=== PATIENT | female | born 1960 | race Caucasian/White ===

== ENCOUNTER 2016-10-28 22:39 | Inpatient (IN) | payer BC, OTHER ==
[2016-10-28] MEDS ORDERED: KETOROLAC 30 MG/ML 1 ML VIAL IVP STA (22:45)
[2016-10-28] MEDS ORDERED: FAMOTIDINE 20 MG/2 ML VIAL IV STA (22:45)
[2016-10-28] MEDS ORDERED: ONDANSETRON 4 MG/2 ML VIAL IVP STA (22:45)
--- NOTE | 2016-10-28 22:49 | ED ---
Chest Pain HPI - General Stated Complaint: chest pain,NV Time Seen by Provider: 10/28/16 22:39 Source: patient, EMS, RN notes reviewed Mode of arrival: EMS - History of Present Illness Initial Comments: This is a 56-year-old female with a history of a cholecystectomy in the past who had the onset about 2 hours ago of nausea vomiting diarrhea and sharp midsternal chest pain. He states the pain was 1010 severity did not get any relief from nitroglycerin that was administered by EMS she was given 324 mg aspirin she still feels nauseated points to her lower sternum and epigastric area. She denies any drinking today no history of peptic ulcer disease. No history of heart disease or lung disease. MD Complaint: chest pain, other - Related Data Home Medications Medication Instructions Recorded Confirmed Calcium Carbonate [Calcium] 600 mg PO DAILY 03/06/16 03/06/16 Celecoxib [CeleBREX] 200 mg PO DAILY 03/06/16 03/08/16 Cetirizine HCl [Zyrtec] 10 mg PO DAILY 03/06/16 03/08/16 Cyanocobalamin [Vitamin B-12] 500 mcg PO DAILY 03/06/16 03/08/16 Verapamil HCl [Verapamil ER] 120 mg PO Q2D 03/06/16 03/08/16 Previous Rx's Medication Instructions Recorded traMADol HCl [Ultram] 50 mg PO Q6H PRN #40 tab 03/08/16 Allergies Allergy/AdvReac Type Severity Reaction Status Date / Time tioconazole Allergy Rash/Hives Verified 03/06/16 11:53 [From Monistat 1 (tioconazole)] codeine AdvReac Nausea & Verified 03/06/16 11:53 Vomiting Review of Systems ROS Statement: Those systems with pertinent positive or pertinent negative responses have been documented in the HPI. ROS Other: All systems not noted in ROS Statement are negative. EKG Findings - EKG Results: EKG: interpreted by [facility] [place] (EKG showed a sinus rhythm of 97 NH interval 132 QRS duration 80 daily since QTC of 350/444 50 T-wave changes. Compared to the EKG submitted by EMS.), sinus rhythm, normal axis, normal QRS, normal ST/T, no acute changes Past Medical History Past Medical History: Asthma, GERD/Reflux, Hypertension, Osteoarthritis (OA) Additional Past Medical History / Comment(s): takes verapamil for tachycardia, to have sleep study soon History of Any Multi-Drug Resistant Organisms: None Reported Past Surgical History: Appendectomy, Cholecystectomy, Hysterectomy, Joint Replacement, Orthopedic Surgery, Tonsillectomy Additional Past Surgical History / Comment(s): both knees replaced, thumb surg, left adrenal gland removed Past Anesthesia/Blood Transfusion Reactions: Postoperative Nausea & Vomiting ( PONV) Additional Past Anesthesia/Blood Transfusion Reaction / Comment(s): sister had stroke after surg. Past Psychological History: No Psychological Hx Reported Smoking Status: Never smoker Past Alcohol Use History: Occasional Past Drug Use History: None Reported - Past Family History Father Family Medical History: Deep Vein Thrombosis (DVT) Sister(s) Family Medical History: Cancer General Exam - General Exam Comments Initial Comments: This is a well up well-nourished awake alert anxious appearing female General appearance: alert, anxious, in distress Head exam: Present: atraumatic, normocephalic, normal inspection Eye exam: Present: normal appearance, PERRL, EOMI. Absent: scleral icterus, conjunctival injection, periorbital swelling ENT exam: Present: normal exam, mucous membranes moist Neck exam: Present: normal inspection. Absent: tenderness, meningismus, lymphadenopathy Respiratory exam: Present: normal lung sounds bilaterally, chest wall tenderness (Reproducible tenderness palpation over the lower costal sternal margins). Absent: respiratory distress, wheezes, rales, rhonchi, stridor Cardiovascular Exam: Present: regular rate, normal rhythm, normal heart sounds. Absent: systolic murmur, diastolic murmur, rubs, gallop, clicks GI/Abdominal exam: Present: soft, tenderness (Midepigastric tenderness palpation no guarding rebound), normal bowel sounds. Absent: distended, guarding, rebound, rigid Extremities exam: Present: normal inspection, full ROM, normal capillary refill. Absent: tenderness, pedal edema, joint swelling, calf tenderness Back exam: Present: normal inspection Neurological exam: Present: alert, oriented X3, CN II-XII intact Psychiatric exam: Present: normal affect, normal mood Skin exam: Present: warm, dry, intact, normal color. Absent: rash Course Vital Signs 10/28/16 10/29/16 10/29/16 22:49 00:41 01:32 Temperature 97 F L Pulse Rate 79 73 77 Respiratory 16 14 14 Rate Blood Pressure 116/67 101/67 107/73 O2 Sat by Pulse 94 L 99 99 Oximetry - Reevaluation(s) Reevaluation #1: 10/29/16 00:29 The patient still demonstrates epigastric pain to palpation and states she has not got much relief from the medication given so far. Her nausea has improved however. Chest Pain MDM - MDM Patient initially did not ecchymosis relief from initial pain medication lab work and x-rays were finally completed the lab work that show evidence of increased otitis x-rays are nonspecific. I did discuss the findings with the patient and her the patient will be admitted for evaluation for acute pancreatitis Disposition Clinical Impression: Acute pancreatitis, Abdominal pain, Gastroenteritis Disposition: ADMITTED IP TO THIS HOSP Condition: Stable
[2016-10-28 23:08] LABS: Basophils % (A) 0 %; CH 29.1; CHCM 33.1; Eosinophils # (A) 0.3 k/uL (0-0.7); Eosinophils % (A) 2 %; HCT 43.9 % (34.0-46.0); HDW 2.72; HGB 14.5 gm/dL (11.4-16.0); Luc # (Auto) 0.28; Luc % (Auto) 2; Lymphocytes # (A) 3.3 k/uL (1.0-4.8); Lymphocytes % (A) 19 %; MCH 29.3 pg (25.0-35.0); MCHC 33.1 g/dL (31.0-37.0); MCV 88.6 fL (80.0-100.0); Mean Platelet Volume 7.7; Monocytes # (A) 0.7 k/uL (0-1.0); Monocytes % (A) 4 %; Neutrophils # (A) 12.5 k/uL (1.3-7.7); Neutrophils % (A) 73 %; RBC 4.95 m/uL (3.80-5.40); RDW 13.2 % (11.5-15.5); WBC 17.2 k/uL (3.8-10.6)
[2016-10-28] MEDS ORDERED: ACETAMINOPHEN IV (For NPO) 1,000 MG in SALINE 1 100ML.BAG IVPB STA (23:23)
[2016-10-28 23:40] LABS: Creatine Kinase MB 0.7 ng/mL (0.0-2.4)
[2016-10-28 23:41] LABS: Troponin I 0.029 ng/mL (0.000-0.034)
[2016-10-28 23:51] LABS: Prothrombin Time 10.3 sec (9.0-12.0)
[2016-10-28 23:56] LABS: ALT 48 U/L (9-52); AST 37 U/L (14-36); Alkaline Phosphatase 85 U/L (38-126); Anion Gap 7 mmol/L; Blood Urea Nitrogen 21 mg/dL (7-17); Calcium 7.8 mg/dL (8.4-10.2); Carbon Dioxide 25 mmol/L (22-30); Chloride 112 mmol/L (98-107); Glucose 194 mg/dL (74-99); Magnesium 1.7 mg/dL (1.6-2.3); Non-African American GFR(MDRD) >60 (>60 ml/min/1.73 sqM); Sodium 144 mmol/L (137-145); Total Bilirubin 0.3 mg/dL (0.2-1.3); Total Protein 5.9 g/dL (6.3-8.2)
[2016-10-28 23:56] LABS: Partial Thromboplastin Time 20.8 sec (22.0-30.0)
[2016-10-29] MEDS ORDERED: SODIUM CHLORIDE 0.9% 1,000 ML IV STA (00:14)
[2016-10-29] MEDS ORDERED: HYDROmorphone 1 MG/ML 1 ML SYRINGE IVP STA (00:22)
[2016-10-29] MEDS ORDERED: LORazepam 2 MG/ML SYRINGE IV STA (00:22)
[2016-10-29 00:26] LABS: Amylase 4563 U/L (30-110)
[2016-10-29] MEDS ORDERED: ONDANSETRON 4 MG/2 ML VIAL IVP STA (00:36)
--- NOTE | 2016-10-29 00:50 | XR ---
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 FINDINGS: Mild chronic lung changes are suggested bilaterally. There is no focal air space opacity, pleural effusion, or pneumothorax seen. The cardiac silhouette size is within normal limits. The osseous structures are intact. IMPRESSION: No acute cardiopulmonary process. Chronic lung changes.
--- NOTE | 2016-10-29 01:20 | XR ---
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 COMPARISON: 08/06/2011 FINDINGS: Scattered gas is seen in non-distended small bowel loops. Moderate amount of fecal materia l is noted in the colon. There is no visceromegaly, pneumoperitoneum, or abnormal calcification appr eciated. The lung bases are clear and the osseous structures are intact. Multiple surgical clips are noted in the abdomen. IMPRESSION: Moderate fecal material in the colon. Overall nonobstructive bowel gas pattern.
[2016-10-29] MEDS ORDERED: NALOXONE 0.4 MG/ML 1 ML VIAL IV PRN (01:59)
[2016-10-29] MEDS: SODIUM CHLORIDE 0.9% 1,000 ML IV SCH ×3 (02:49→15:47)
[2016-10-29] MEDS: ONDANSETRON 4 MG/2 ML VIAL IVP PRN ×3 (04:33→21:20)
[2016-10-29] MEDS: HYDROmorphone 1 MG/ML 1 ML SYRINGE IV PRN ×4 (05:30→21:26)
[2016-10-29] MEDS: PANTOPRAZOLE 40 MG/10 ML VIAL IVP SCH (16:25)
[2016-10-29] MEDS: HEPARIN SODIUM,PORCINE 5,000 UNIT/ML 1 ML VIAL SQ SCH (16:26)
--- NOTE | 2016-10-29 16:43 | US ---
EXAMINATION TYPE: US abdomen complete DATE OF EXAM: 10/29/2016 4:12 PM COMPARISON: NONE CLINICAL HISTORY: 56-year-old female Acute Pancreatitis. ABD pain, N&V, history of osito TECHNIQUE: Multiple sonographic images of the abdomen were obtained. FINDINGS: TECHNOLOGIST NOTES: Very limited exam due to pt's ABD pain: pt unable to lie flat, take in a breat h and hold it, and unable to tolerate probe pressure on ABD Liver Length: 15.1 cm CBD: 0.4 cm Spleen: 8.8 cm Right Kidney: 10.6 x 4.5 x 4.2 cm Left Kidney: 10.6 x 5.0 x 4.4 cm Pancreas: Mildly dilated main hepatic duct at the level of the pancreatic neck. Suboptimal visualiza tion of the pancreatic body and tail and most of the head due to shadowing from bowel gas. Liver: Limited windows for visualization. The left lobe was particularly difficult to visualize. No discrete abnormality of the visualized portions. Gallbladder: Surgically absent CBD: Within normal limits. Spleen: Within normal limits. Right Kidney: Lower pole obscured by bowel gas shadowing. No hydronephrosis. Left Kidney: Limited visualization; no obvious hydronephrosis. Upper IVC: Unable to visualize Abd Aorta: Proximal portion within normal limits. The remainder suboptimally visualized. IMPRESSION: 1. Technically limited exam as above. 2. Only a small portion of the pancreatic neck was seen and shows a mildly dilated main pancreatic du ct at 4 mm. This may be a product of patient's acute pancreatitis. 3. Status post cholecystectomy. No biliary ductal dilatation.
--- NOTE | 2016-10-29 16:49 | HP ---
DATE OF ADMISSION: Chief complaint is abdominal pain, mainly in the epigastric region. HISTORY OF PRESENT ILLNESS: A 56-year-old female with known history of GERD and history of tachycardia on Verapamil. Came to the hospital with complaints of nausea, vomiting and abdominal pain, in the epigastric region 2 hours prior to admission. Patient has pain mainly in the epigastric region, radiating into the back and 10/10 severity. No associated nausea, vomiting and no relieving factors. Patient came into the ER for further evaluation. Patient was found to have elevated lipase and amylase levels significantly with the lipase level of greater than 20,000. Patient does have history of cholecystectomy. Denied any history of hyperlipidemia or triglyceridemia. Denied any alcohol abuse. Denied any recent weight loss or loss of appetite. Denied any other medical problems. No recent illnesses. No usual food intake. No sick contacts at home. REVIEW OF SYSTEMS: CONSTITUTIONAL: No fever. No chills. No weakness, malaise. RESPIRATORY: No cough or sputum production. No short of breath. CARDIOVASCULAR: No chest pain or short of breath. No leg swelling. ABDOMEN: Patient does have nausea, vomiting, epigastric abdominal pain. No constipation. No diarrhea. GENITOURINARY: No dysuria. No hematuria. ENDOCRINE: Negative. PSYCHIATRIC: Negative. SKIN: Negative. All other 14-point review of systems negative except as above. Past medical history includes GERD, hypertension, osteoarthritis, and asthma. Tachycardia on verapamil and supposed to have a sleep study done. PAST SURGICAL HISTORY: Appendectomy, cholecystectomy, hysterectomy, both knees replaced, thumb surgery, left adrenal gland removed, tonsillectomy with postoperative nausea and vomiting. PSYCHOSOCIAL HISTORY: None. SOCIAL HISTORY: Patient never a smoker. Occasional alcohol use. Denied any drugs or IVDU. FAMILY HISTORY: Denied any have a history of hypertension or diabetes mellitus in the family. Family history of DVT and sister has cancer. Allergies include TIOCONAZOLE and CODEINE. Medications include: 1. ( ). 2. Calcium. 3. Celebrex. 4. Cetirizine. 5. Vitamin B12. 6. Verapamil. PHYSICAL EXAMINATION: A 56-year-old female, lying in bed comfortably. Awake, alert, oriented x3, appears in no apparent distress. VITALS: Blood pressure is 126/87, pulse 100, respirations 16, temperature afebrile, pulse ox 93% on room air. HEENT: Atraumatic, normocephalic. Neck is supple. No JVD. CVS EXAM: S1, S2 heard. No murmurs, no gallop, no rub. LUNGS: Bilateral air entry is present. Decreased breath sounds bilateral basally. Nonlabored breathing. No wheezing. Abdomen is soft. Epigastric and mid abdominal tenderness mild to moderate. No guarding or rigidity. Bowel sounds are present, no palpable organomegaly. ANALYTICAL MANAGER: Awake, alert, oriented, x3. No focal neurologic deficits. Cranial nerves grossly intact. EXTREMITIES: No edema. Pulses palpable bilaterally. No clubbing or cyanosis. PSYCHIATRIC: Cooperative. LABORATORY DATA: WBC 17.2, hemoglobin 14.5, platelets 292, INR 1.0. D-dimer is 0.47, sodium 144, potassium 4.0, chloride 112, bicarb is 25. BUN 21, creatinine 0.6, blood sugar is 194. Calcium 7.8, magnesium 1.7, AST is 37, total protein is 5.2, albumin 3.2 and troponin less than 0.029 and amylase 4563. Lipase is greater than 20,000. Chest x-ray no acute cardiopulmonary process, chronic lung changes. Abdominal x-ray, moderate fecal material in the colon, overall nonobstructive bowel gas pattern. IMPRESSION: 1. Acute severe pancreatitis, etiology unknown at this time. Recent history of cholecystectomy. 2. Gastroesophageal reflux disease. 3. Asthma, not in exacerbation. 4. NSAID use. 5. Hypertension and tachycardia. 6. Deep venous thrombosis prophylaxis with heparin subcutaneous. DISCUSSION AND PLAN: A 56-year-old woman admitted to hospital with acute severe pancreatitis. Will continue with pain medications, IV fluids. Will get ultrasound of the abdomen to rule out an obstructive process. Gastroenterology has been consulted for further evaluation. Will repeat CBC and follow up leukocytosis and hemoglobin. Continue to keep the patient n.p.o. Will check lipid panel. Patient did have history of cholecystectomy. Will follow up closely. Further recommendations based on clinical course. Patient's progress is guarded.
[2016-10-29 18:11] LABS: Basophils % (A) 0 %; CHCM 32.1; Eosinophils % (A) 0 %; HGB 14.4 gm/dL (11.4-16.0); Luc # (Auto) 0.12; Luc % (Auto) 1; Lymphocytes # (A) 0.6 k/uL (1.0-4.8); Lymphocytes % (A) 4 %; MCHC 31.9 g/dL (31.0-37.0); MCV 90.7 fL (80.0-100.0); Mean Platelet Volume 6.4; Monocytes # (A) 0.6 k/uL (0-1.0); Monocytes % (A) 4 %; Neutrophils # (A) 12.9 k/uL (1.3-7.7); Neutrophils % (A) 91 %; RBC 4.96 m/uL (3.80-5.40); RDW 13.4 % (11.5-15.5); WBC 14.3 k/uL (3.8-10.6); WBC (Perox) 15.43
[2016-10-29] MEDS: DOCUSATE 100 MG CAP PO SCH (21:20)
[2016-10-30] MEDS: HYDROmorphone 1 MG/ML 1 ML SYRINGE IV PRN ×5 (01:07→20:38)
[2016-10-30] MEDS: HEPARIN SODIUM,PORCINE 5,000 UNIT/ML 1 ML VIAL SQ SCH ×4 (01:59→23:01)
[2016-10-30] MEDS: SODIUM CHLORIDE 0.9% 1,000 ML IV SCH ×4 (02:02→20:42)
--- NOTE | 2016-10-30 02:57 | P.CONS ---
History of Present Illness - Reason for Consult Consult date: 10/29/16 - History of Present Illness The patient is a 56-year old female who was admitted to the hospital with acute onset of abdominal pains and atypical chest pains as well as nausea and vomitinngg. She was found to have significant elevations in her amylase and lipase. Had prior cholecystectomy. US showed no CBD dialation. No history of alcohol consumption. Past Medical History Past Medical History: Asthma, GERD/Reflux, Hypertension, Osteoarthritis (OA) Additional Past Medical History / Comment(s): takes verapamil for tachycardia, to have sleep study soon History of Any Multi-Drug Resistant Organisms: None Reported Past Surgical History: Appendectomy, Cholecystectomy, Hysterectomy, Joint Replacement, Orthopedic Surgery, Tonsillectomy Additional Past Surgical History / Comment(s): both knees replaced, thumb surg, left adrenal gland removed Past Anesthesia/Blood Transfusion Reactions: Postoperative Nausea & Vomiting ( PONV) Additional Past Anesthesia/Blood Transfusion Reaction / Comm: sister had stroke after surg. Past Psychological History: No Psychological Hx Reported Smoking Status: Never smoker Past Alcohol Use History: Occasional Past Drug Use History: None Reported - Past Family History Father Family Medical History: Deep Vein Thrombosis (DVT) Sister(s) Family Medical History: Cancer Medications and Allergies Home Medications Medication Instructions Recorded Confirmed Type Calcium Carbonate [Calcium] 600 mg PO DAILY 03/06/16 10/29/16 History Celecoxib [CeleBREX] 200 mg PO DAILY 03/06/16 10/29/16 History Cetirizine HCl [Zyrtec] 10 mg PO DAILY 03/06/16 10/29/16 History Cyanocobalamin [Vitamin B-12] 500 mcg PO DAILY 03/06/16 10/29/16 History Verapamil HCl [Verapamil ER] 120 mg PO Q48H 03/06/16 10/29/16 History Allergies Allergy/AdvReac Type Severity Reaction Status Date / Time tioconazole Allergy Rash/Hives Verified 10/29/16 11:29 [From Monistat 1 (tioconazole)] codeine AdvReac Nausea & Verified 10/29/16 11:29 Vomiting Physical Exam Vitals: Vital Signs Temp Pulse Resp BP Pulse Ox 10/29/16 15:00 98.5 F 114 H 16 112/75 90 L 10/29/16 08:23 95 10/29/16 07:00 98.9 F 100 16 126/87 93 L 10/29/16 02:40 97.8 F 83 20 139/76 94 L Intake and Output 10/29/16 10/29/16 10/30/16 14:59 22:59 06:59 Intake Total 0 Balance 0 Intake: Oral 0 Other: # Voids 1 Results CBC & Chem 7: 10/29/16 17:43 10/28/16 23:40 Labs: Abnormal Lab Results - Last 24 Hours (Table) 10/29/16 Range/Units 17:43 WBC 14.3 H (3.8-10.6) k/uL Neutrophils # 12.9 H (1.3-7.7) k/uL Lymphocytes # 0.6 L (1.0-4.8) k/uL Assessment and Plan Plan: Acute pancreatitis with no definite etiology. Agree with supportive measures. Will consider ERCP or MRI based on her course.
[2016-10-30 07:48] LABS: Basophils # (A) 0.2 k/uL (0-0.2); Basophils % (A) 1 %; CH 29.3; CHCM 32.3; Eosinophils % (A) 0 %; HDW 2.71; HGB 13.3 gm/dL (11.4-16.0); Luc % (Auto) 1; Lymphocytes # (A) 0.7 k/uL (1.0-4.8); Lymphocytes % (A) 4 %; MCH 28.9 pg (25.0-35.0); MCHC 31.6 g/dL (31.0-37.0); MCV 91.5 fL (80.0-100.0); Mean Platelet Volume 7.3; Monocytes # (A) 0.8 k/uL (0-1.0); Monocytes % (A) 5 %; Neutrophils % (A) 89 %; RBC 4.58 m/uL (3.80-5.40); RDW 13.7 % (11.5-15.5); WBC 15.8 k/uL (3.8-10.6); WBC (Perox) 16.55
[2016-10-30 07:59] LABS: Anion Gap 9 mmol/L; Blood Urea Nitrogen 15 mg/dL (7-17); Carbon Dioxide 21 mmol/L (22-30); Chloride 116 mmol/L (98-107); Cholesterol 131 mg/dL (<200); Glucose 90 mg/dL (74-99); HDL Cholesterol 41 mg/dL (40-60); Non-African American GFR(MDRD) >60 (>60 ml/min/1.73 sqM); Potassium 3.8 mmol/L (3.5-5.1); Sodium 146 mmol/L (137-145); Triglycerides 98 mg/dL (<150)
[2016-10-30] MEDS: PANTOPRAZOLE 40 MG/10 ML VIAL IVP SCH (08:38)
[2016-10-30] MEDS: SENNOSIDES 8.6 MG TAB PO SCH (08:38)
[2016-10-30] MEDS: DOCUSATE 100 MG CAP PO SCH ×2 (08:38→21:48)
[2016-10-30 08:49] LABS: Amylase 1018 U/L (30-110)
--- NOTE | 2016-10-30 16:41 | XR ---
EXAMINATION TYPE: XR chest 2V DATE OF EXAM: 10/30/2016 4:35 PM COMPARISON: Chest x-ray from 2 days ago. HISTORY: Fever and hypoxia. TECHNIQUE: Frontal and lateral views of the chest are obtained. FINDINGS: There are new small to moderate size bilateral pleural effusions with associated bibasilar atelectasis and/or infiltrate. Upper lungs remain clear without pneumothorax. The cardiac silhouett e size is within normal limits. The osseous structures are intact. Cholecystectomy clips are redemo nstrated. Additional surgical clips left mid abdomen are again seen. IMPRESSION: New small to moderate-sized bilateral pleural effusions and associated bibasilar atelect asis.
[2016-10-30 19:51] LABS: Amorphous Sediment,Urine Occasional /hpf; Appearance,Urine Cloudy (Clear); Bacteria,Urine Moderate /hpf; Bilirubin,Urine Negative (Negative); Glucose,Urine (UA) Trace (Negative); Ketones,Urine 3+ (Negative); Leukocyte Esterase,Urine Trace (Negative); Mucus,Urine Rare /hpf; Nitrite,Urine Negative (Negative); PH, Urine 5.5 (5.0-8.0); Particle Count 8524; Protein,Urine 2+ (Negative); RBC,Urine 4 /hpf (0-5); Squamous Epithelial Cell,Urine 11 /hpf (0-4); UA Billing (MACRO vs. MICRO) MICRO; Urobilinogen,Urine <2.0 mg/dL (<2.0); WBC,Urine 24 /hpf (0-5)
[2016-10-30] MEDS ORDERED: SODIUM CHLORIDE 0.9% 1,000 ML IV SCH (21:30)
[2016-10-30] MEDS: LEVOFLOXACIN 500MG-D5W PMX 500 MG in DEXTROSE/WATER 1 100ML.BAG IVPB SCH (21:48)
[2016-10-30] MEDS: ONDANSETRON 4 MG/2 ML VIAL IVP PRN (23:23)
[2016-10-31] MEDS ORDERED: FUROSEMIDE 10 MG/ML 2 ML VIAL IV ONE (00:13)
[2016-10-31] MEDS: HYDROmorphone 1 MG/ML 1 ML SYRINGE IV PRN ×4 (03:50→17:24)
--- NOTE | 2016-10-31 08:11 | XR ---
EXAMINATION TYPE: XR chest 2V DATE OF EXAM: 10/31/2016 7:25 AM COMPARISON: 10/30/2016 HISTORY: 56 year-old female follow-up, patient with pancreatitis TECHNIQUE: Frontal and lateral views FINDINGS: The cardiomediastinal silhouette, aorta, and pulmonary vasculature are within normal limits. Stable c yst is slightly increased small pleural effusions. Strandy atelectasis at the lung bases. Upper and m id lungs are clear. IMPRESSION: Stable to slightly increased small pleural effusions with adjacent atelectasis.
--- NOTE | 2016-10-31 09:42 | PN ---
DATE OF SERVICE; 10/30/2016 INTERVAL HISTORY: Ms. Rivera is a 56-year-old with known history of GERD and tachycardia on verapamil at home, came to the hospital with complaints of nausea, vomiting, abdominal pain and epigastric abdominal pain. The patient was found to have significantly elevated lipase level and amylase level and is being treated for acute pancreatitis, etiology unknown at this time. Gastroenterology has seen the patient and recommended possible ERCP, MRI, otherwise liver enzymes, Lipase significantly ( ) today. Abdominal pain is improved. Otherwise, this afternoon, the patient developed low grade fever and chest x-ray showed bilateral effusions with atelectasis and urinalysis was found to have possible contaminant sample. Otherwise, the patient currently still n.p.o. and IV fluid rate has been decreased to 50 mL per hour and being continued to monitor closely. REVIEW OF SYSTEMS: CONSTITUTIONAL: No fever. No chills. The patient does have low grade fever. No weakness or malaise. RESPIRATORY: No cough or sputum production. The patient does have mild short of breath. CARDIOVASCULAR: Shortness of breath requiring oxygen. ABDOMEN: No nausea, vomiting. The patient does have mild abdominal pain. GENITOURINARY: Negative. ENDOCRINE: No nausea or vomiting. GENITOURINARY: Negative. ENDOCRINE: Negative. PSYCHIATRY: Negative. SKIN: Negative. All other 14 point review of systems negative except as above. Current medications reviewed. 56-year-old female, lying in bed comfortably, awake, alert, oriented times three. Appears to be in no apparent distress. VITALS: Blood pressure is 120/62, pulse 118, respiration 16, temp T-max 100. Pulse ox 91% on 2 liters nasal cannula. HEENT: Atraumatic, normocephalic. Neck is supple. No JVD. CVS: S1, S2 heard. No murmurs. No gallops. LUNGS: Bilateral air entry is present. Diminished breath sounds basally. ABDOMEN: Soft and nontender. Mild ( ) tenderness. Bowel sounds are present. ARTIFICIAL FLOWER MAKER: Awake, alert, oriented, x3. No focal deficits. EXTREMITIES: No edema. Pulses palpable bilaterally. No clubbing or cyanosis. PSYCHIATRIC: Cooperative. LABORATORY DATA: WBC 15.8, hemoglobin 10.3, platelets 214. Sodium 143, potassium 3.8, chloride 116, bicarb is 21, BUN 15, creatinine 0.57, calcium 6.0, amylase level is 1018. Lipase level is 4107. Urinalysis showed contaminant sample. Chest x-ray showed new small to moderate-sized bilateral pleural effusions and associated bibasilar atelectasis. IMPRESSION: 1. Short of breath secondary to bilateral pleural effusion atelectasis. Patient will be given Lasix dose x1 now, and we will reduce the IV fluid rate to 50 mL an hour since the patient is n.p.o. 2. Low grade fever most likely secondary to atelectasis, without any source of infection. Urinalysis showed contaminant sample. 3. Acute severe pancreatitis, etiology unknown. Possible ERCP/MRI as per gastroenterology. 4. History of cholecystectomy. 5. Gastroesophageal reflux disease. 6. Asthma, not in exacerbation. 7. History of NSAID use. 8. Hypertension and tachycardia. 9. Deep venous thrombosis prophylaxis, heparin subcu. DISCUSSION AND PLAN: Patient will be continued with n.p.o. and we will start diet tomorrow once the pain completely resolves. We will reduce IV fluid rate to 50 mL an hour and the patient will be given Lasix dose times one and follow CBC and BMP tomorrow as well as amylase and lipase. Gastroenterology is following the patient. Patient does have a history of gallstones and cholecystectomy and further recommendations based on clinical course. Prognosis is guarded.
[2016-10-31] MEDS: HEPARIN SODIUM,PORCINE 5,000 UNIT/ML 1 ML VIAL SQ SCH ×3 (09:44→23:19)
[2016-10-31] MEDS: DOCUSATE 100 MG CAP PO SCH ×2 (09:44→21:16)
[2016-10-31] MEDS: PANTOPRAZOLE 40 MG/10 ML VIAL IVP SCH (09:44)
[2016-10-31] MEDS: SENNOSIDES 8.6 MG TAB PO SCH (09:44)
[2016-10-31 10:58] LABS: Basophils % (A) 0 %; CHCM 32.3; Eosinophils % (A) 0 %; HCT 41.4 % (34.0-46.0); HDW 2.89; HGB 13.1 gm/dL (11.4-16.0); Luc # (Auto) 0.15; Luc % (Auto) 1; Lymphocytes # (A) 0.6 k/uL (1.0-4.8); Lymphocytes % (A) 4 %; MCH 28.7 pg (25.0-35.0); MCHC 31.7 g/dL (31.0-37.0); MCV 90.7 fL (80.0-100.0); Mean Platelet Volume 6.6; Monocytes # (A) 0.8 k/uL (0-1.0); Monocytes % (A) 5 %; Neutrophils # (A) 13.1 k/uL (1.3-7.7); Neutrophils % (A) 89 %; RBC 4.56 m/uL (3.80-5.40); RDW 13.8 % (11.5-15.5); WBC 14.7 k/uL (3.8-10.6); WBC (Perox) 15.73
[2016-10-31 11:12] LABS: ALT 50 U/L (9-52); AST 42 U/L (14-36); Alkaline Phosphatase 98 U/L (38-126); Anion Gap 11 mmol/L; Blood Urea Nitrogen 10 mg/dL (7-17); Carbon Dioxide 21 mmol/L (22-30); Chloride 113 mmol/L (98-107); Glucose 93 mg/dL (74-99); Non-African American GFR(MDRD) >60 (>60 ml/min/1.73 sqM); Potassium 3.5 mmol/L (3.5-5.1); Sodium 145 mmol/L (137-145); Total Bilirubin 1.3 mg/dL (0.2-1.3); Total Protein 5.7 g/dL (6.3-8.2)
[2016-10-31 11:17] LABS: Amylase 331 U/L (30-110); Calcium 6.2 mg/dL (8.4-10.2)
[2016-10-31] MEDS ORDERED: FUROSEMIDE 10 MG/ML 4 ML VIAL IV STA (11:52)
[2016-10-31] MEDS ORDERED: cefTRIAXone 2,000 MG in SODIUM CHLORIDE 0.9% 100 ML IVPB SCH (15:00)
[2016-10-31] MEDS: METOPROLOL TARTRATE 12.5 MG TAB PO SCH (21:16)
[2016-10-31] MEDS: LEVOFLOXACIN 500MG-D5W PMX 500 MG in DEXTROSE/WATER 1 100ML.BAG IVPB SCH (21:16)
[2016-10-31] MEDS ORDERED: RX INFO: IV CONTRAST WAS GIVEN 1 EACH MISC MISCELLANE PRN (22:32)
[2016-11-01] MEDS ORDERED: PIPERACILLIN-TAZOBACTAM 3.375 GM in DEXTROSE/WATER 1 50ML.BAG IVPB SCH
[2016-11-01] MEDS: AMPICILLIN-SULBACTAM 3 GM in SODIUM CHLORIDE 0.9% 100 ML IVPB SCH ×5 (00:04→23:03)
[2016-11-01] MEDS: HYDROmorphone 1 MG/ML 1 ML SYRINGE IV PRN ×6 (03:58→21:32)
[2016-11-01] MEDS: IOHEXOL 350 MG/ML 25 ML BOTTLE (ORAL USE) PO PRN ×2 (06:16→07:52)
[2016-11-01] MEDS: ONDANSETRON 4 MG/2 ML VIAL IVP PRN (07:52)
--- NOTE | 2016-11-01 08:15 | CONS ---
DATE OF CONSULTATION: DATE OF SERVICE: 10/31/2016 REASON FOR CONSULTATION: Gram-positive bacteremia and fever. HISTORY OF PRESENT ILLNESS: The patient is a 56-year-old female who presented to the ER on 10/28/2016 with a chief complaint of abdominal pain that started suddenly that afternoon. The patient's abdominal pain has been mostly in the epigastric area, which she was confusing with the chest pain. It was sharp 8 to 9 out of 10, no radiation and was associated with nausea and vomiting. No diarrhea. Patient denies any significant fever or chills. The patient does not have a history of drinking and did have a cholecystectomy. Subsequently evaluated by ER physician. Though she did not have any fever on arrival, did have a fever of 100.4, both on 10/29 and 10/30. Patient did have blood work that showed evidence of significant elevated amylase and lipase with elevated white count with concern for underlying pancreatitis. She did have blood cultures obtained and showed Gram-positive cocci in chains. She has been treated with Rocephin and Levaquin. I was asked to see the patient for further recommendation regarding antibiotic therapy. Patient denies having any URI symptoms. Denies having any chest pain, shortness of breath, cough. Abdominal pain has slightly improved. No further vomiting. Denies having any diarrhea and no urinary symptoms of burning or frequency. No skin lesions and no joint swelling. REVIEW OF SYSTEMS: CONSTITUTIONAL: Positive for weakness and low grade fever. EYES: No complaint. ENT: No complaint. RESPIRATORY: No complaint. CARDIOVASCULAR: No complaint. GENITOURINARY: No complaint. GASTROINTESTINAL: As per HPI. MUSCULOSKELETAL: No complaint. INTEGUMENTARY: No complaint. PSYCHOLOGICAL: No complaint. ENDOCRINE: No complaint. NEUROLOGIC: No complaint. PAST MEDICAL HISTORY: Hypertension, osteoarthritis, gastroesophageal reflux disease, asthma. PAST SURGICAL HISTORY: Appendectomy, cholecystectomy, hysterectomy, tonsillectomy, bilateral knee replacement and left adrenal gland removed. SOCIAL HISTORY: No history of smoking. Very occasionally drinks. No drug use. FAMILY HISTORY: Father with history of DVT. Sister with history of cancer. Allergies to CODEINE and TIOCONAZOLE. Medications include the patient is on: Restoril, Rocephin 2 grams daily, Levaquin, Protonix, Zofran, Narcan, Lopressor, Dilaudid, heparin, Colace. On examination, blood pressure 113/63 with a pulse of 114, temperature 96.3. She is 97% on 2 L nasal cannula. General description is an elderly female lying in bed in no distress. No tachypnea or accessory muscle of respiration use. HEENT EXAMINATION: No pallor or scleral icterus. Oral mucous membranes dry. NECK: Trachea central. There is no thyromegaly. LUNGS: Unlabored breathing. Clear to auscultation anteriorly. No wheeze or crackles. HEART: S1, S2. Regular rate and rhythm. ABDOMEN: Soft. She is mildly tender in epigastric area. No guarding, no rigidity. No organomegaly. EXTREMITIES: No edema of feet. SKIN EXAMINATION: No rash or mass palpable. NEUROLOGICAL: The patient is awake, alert, oriented x3. Mood and affect normal. LABS: Hemoglobin is 13.1, white count 14.7 with a BUN of 10, creatinine 0.50. Electrolytes have been normal. Amylase was 1018 on admission down to 331. Lipase 4000 on admission down to 662. Urine has been slightly positive. Blood cultures with gram-positive cocci in chains. Ultrasound of the abdomen was limited because of pain and bowel gas pattern. Did show some dilatation of the duct at the pancreatic head. DIAGNOSTIC IMPRESSION AND PLAN: Patient with sepsis in a patient with a fever of 100.4, did have elevated white count meeting criteria for systemic inflammatory response syndrome in a patient who presented to the hospital with abdominal pain mostly in the epigastric area with significant elevated amylase and lipase likely resulting in an episode of pancreatitis, now with Gram-positive bacteremia with gram-positive cocci in chains, more likely enterococcus species. PLAN: 1. Blood cultures x1 repeated to make sure no evidence of any persistent bacteremia. 2. Obtain a CT of abdomen and pelvis with oral contrast. 3. Discontinue the Rocephin now going to start the patient on Unasyn 3 grams q.6. 4. Will follow up on the clinical condition and cultures and further adjust the medication if needed. Thank you for this consultation. Will follow this patient along with you. RASHEL
[2016-11-01 08:38] LABS: CH 29.4; CHCM 33.2; HCT 39.7 % (34.0-46.0); HDW 3.16; HGB 12.6 gm/dL (11.4-16.0); MCH 28.4 pg (25.0-35.0); MCHC 31.8 g/dL (31.0-37.0); MCV 89.3 fL (80.0-100.0); Mean Platelet Volume 7.5; RBC 4.44 m/uL (3.80-5.40); RDW 13.8 % (11.5-15.5); WBC 14.5 k/uL (3.8-10.6)
[2016-11-01] MEDS: METOPROLOL TARTRATE 12.5 MG TAB PO SCH ×2 (08:39→20:03)
[2016-11-01] MEDS: SENNOSIDES 8.6 MG TAB PO SCH (08:39)
[2016-11-01] MEDS: DOCUSATE 100 MG CAP PO SCH ×2 (08:39→20:04)
[2016-11-01] MEDS: PANTOPRAZOLE 40 MG TABLET PO SCH (08:39)
[2016-11-01] MEDS: HEPARIN SODIUM,PORCINE 5,000 UNIT/ML 1 ML VIAL SQ SCH ×3 (08:39→23:03)
[2016-11-01 08:54] LABS: Amylase 101 U/L (30-110)
[2016-11-01 09:04] LABS: Anion Gap 11 mmol/L; Blood Urea Nitrogen 9 mg/dL (7-17); Carbon Dioxide 24 mmol/L (22-30); Chloride 105 mmol/L (98-107); Glucose 85 mg/dL (74-99); Non-African American GFR(MDRD) >60 (>60 ml/min/1.73 sqM); Potassium 3.2 mmol/L (3.5-5.1); Sodium 140 mmol/L (137-145)
--- NOTE | 2016-11-01 09:14 | CT ---
EXAMINATION TYPE: CT abdomen pelvis w con DATE OF EXAM: 11/01/2016 8:26 AM HISTORY: Abdominal pain with fever nausea and vomiting. Acute pancreatitis on ultrasound [address] DLP: 1319mGycm Automated Exposure Control for Dose Reduction was Utilized. CONTRAST: CT scan of the abdomen and pelvis is performed with IV Contrast, patient injected with 100 ml mL of O mnipaque 300. COMPARISON: Complete abdominal ultrasound October 29, 2016. FINDINGS: LUNG BASES: There are small bilateral pleural effusions with associated compressive atelectasis. LIVER/GB: There is trace perihepatic ascites along the inferior right lateral margin. Cholecystectomy clips are noted. PANCREAS: Pancreas is slightly prominent in size. No suspicious areas of nonenhancement are seen. The re is ill-defined fluid surrounding the pancreas extending into Gerota's fascia inferiorly as well as the mesentery. Ill-defined fluid surrounds portions of the SMV and branches of the celiac trunk and SMA. There is more well-formed thin-walled fluid collection anterior to the distal body and tail khadra uring 4.3 x 5.2 cm on axial image 26. No ductal dilatation is present. SPLEEN: There is prominent medial extension of spleen or large splenule in the inferior medial hilum measuring 5.1 cm on axial image 25 noted, latter is favored. ADRENALS: Surgical clips in region of left adrenal gland are identified. Left adrenal gland is likely surgically absent. Right adrenal gland is within normal limits. KIDNEYS: Slight inferior extension of the bladder is noted near coronal image 41, consider some degre e of prolapse. There is circumaortic left renal vein which is a normal variant BOWEL: The oral contrast does level of the left colon. There is no suspicious small or large bowel di latation seen. UTERUS/ADNEXA: Moderate amount of free fluid in pelvis is noted presumed related to acute pancreatiti s. Uterus is presumed surgically absent as is not visualized. LYMPH NODES: No greater than 1cm abdominal or pelvic lymph nodes are appreciated. OSSEOUS STRUCTURES: No significant abnormality is seen. OTHER: Areas of heterogeneous fat stranding anterior abdominal wall could reflect product of subcutan eous medicine injections. IMPRESSION: 1. CT findings of slightly enlarged pancreas with surrounding ill-defined fluid are consistent with c linical suspicion of acute pancreatitis. Degree of inflammatory change is fairly moderate to severe. Presuming symptoms of pain have been present for less than 4 weeks surrounding fluid is consistent wi th acute peripancreatic fluid collection, a more well-formed thin-walled fluid collection anterior to the distal body may reflect developing pseudocyst. No definitive areas of nonenhancement to suggest necrosis are identified.
--- NOTE | 2016-11-01 09:48 | CDI ---
In responding to this query, please exercise your independent professional judgment. The [facility] Coding Staff and Clinical Documentation Specialists appreciate your assistance in clarifying documentation, maintaining compliance with coding guidelines, accurately documenting patients condition and capturing severity of illness. The fact that a question is asked does not imply that any particular answer is desired or expected. Communication forms are a method of clarifying documentation and are not made part of the Legal Health Record. Thank you in advance for your clarification. Last Revision, July 2015 Aditya Melton [address] [facility] [place] [address] Documentation Clarification Form Date: 11/01/2016 9:20:00 AM From: Mary Rubin RN, CCDS Admit Date: 10/29/2016 1:59:00 AM Patient Name: Lizzette Rivera Visit Number: [id number] Dr. Tomas Garsia History/Risk Factors: Asthma, tachycardia, HTN Clinical Indicators: Inflammatory Process Documented: Acute Pancreatitis WBC: 17.2/14.3/15.8 Left Shift: 12.5/12.9/14 Lactic acid: 0.8 Blood cultures: + group D enterococcus Urine CX: + gram negative bacilli U/A: cloudy, +2 protein, trace glucose, +3 keytones, small blood, trace le, wbc 24, Squamous epithelial cells, occasional amphorous sediment, moderate urine bacteria, rare mucus Vitals signs on admission: Temp 97, HR 79, RR 16, B/P 116/67, Spo2 94% RA 2/5 Persistent low grade temps 100.4/99.9/100.6 2/5 HR: 121/115/119/114 Other Clinical Indicators: Sepsis is documented in the ID Consult Treatment: ID Consult: completed Antibiotics: IV Unasyn 3gm IVPB Q 6 hrs, Ceftriaxone 2gm IVPB Q 24 hrs d/c, IV Bolus: 1l IVF Bolus In your professional opinion, can you please clarify if these findings signify one of the following conditions, whether the condition is POA, and cause, if known? Sepsis Severe Sepsis Septic Shock Unable to determine Other, please specify * Identify the (suspected) organism * Link or clarify if there is associated (due to/with): - Organ failure - Shock SIRS Criteria: 2 or more of the following may indicate SIRS Temperature < 96.8F(36C) or > 101.0F (38C) Heart Rate > 90 bpm Respiratory Rate > 20 breaths/min or PaCO2 < 32 mmHg White Blood Cell Count > 12,000 or < 4,000 cells/mm3 or > 10% bands Please document in your progress notes and discharge summary in order to capture severity of illness and risk of mortality. Include clinical findings that support your diagnosis. FYI: Press F11 to launch patient chart. Place X here if this finding has no clinical significance, is not applicable or if you are not able to provide any additional documentation. MTDD
--- NOTE | 2016-11-01 09:58 | CDI ---
In responding to this query, please exercise your independent professional judgment. The [facility] Coding Staff and Clinical Documentation Specialists appreciate your assistance in clarifying documentation, maintaining compliance with coding guidelines, accurately documenting patients condition and capturing severity of illness. The fact that a question is asked does not imply that any particular answer is desired or expected. Communication forms are a method of clarifying documentation and are not made part of the Legal Health Record. Thank you in advance for your clarification. Last Revision, November 2015 Aditya Melton [address] [facility] [address] Documentation Clarification Form Date: 11/01/2016 9:50:00 AM From: Mary Rubin RN, CCDS Admit Date: 10/29/2016 1:59:00 AM Patient Name: Lizzette Rivera Visit Number: [id number] Dr. Del Cid Asthma is documented in the H&P and Progress notes and requires further specificity. Patient history/risk factors: Asthma, OA, HTN, Tachycardia Clinical Indicators: 10/31 Attending Progress note: "asthma not in exacerbation." 10/31 CXR: slightly increased small pleural effusions with adjacent atelectasis. Vital Signs: Temp 97, HR 79, RR 16, B/P 116/67, spo2 94% RA Treatment: Medication: Currently no ordered asthma meds Consults: ID In your professional opinion, can you please further specify the following, if known? With Acute Exacerbation Status asthmaticus Acute lower respiratory infection COPD (specify with or without exacerbation) Chronic obstructive bronchitis Other, please specify Unable to determine Severity Mild intermittent Mild persistent Moderate persistent Severe persistent Other, please specify ____ Unable to determine Form or Type Cough variant Childhood Exercise induced bronchospasm Extrinsic allergic Idiosyncratic Intrinsic nonallergic Late-onset Mixed Other, please specify Unable to determine Please document in your progress notes and discharge summary in order to capture severity of illness and risk of mortality. Include clinical findings that support your diagnosis. FYI: Press F11 to launch patient chart. __x___ Place X here if this finding has no clinical significance, is not applicable or if you are not able to provide any additional documentation. CANDED
[2016-11-01] MEDS ORDERED: POTASSIUM CHLORIDE ER 20 MEQ TAB.ER PO STA (10:05)
--- NOTE | 2016-11-01 10:17 | P.CONS ---
History of Present Illness - Reason for Consult Consult date: 11/01/16 Pancreatitis Requesting physician: Carmel Del Cid - History of Present Illness 56-year-old female patient Dr. Cohen with a past medical history of hypertension, cholelithiasis with cholecystectomy, asthma, GERD, and osteoarthritis. Presents with acute abdominal pain nausea vomiting that started on Sunday. No history of this type of pain. Pancreatic enzymes elevated consistent with acute pancreatitis. Lipase 4107 currently 150. Amylase 1018 currently 101. LFTs unremarkable limits; total bilirubin 1.3. AST 42. ALT 50. Alkaline phosphatase 98. No history of alcoholism; she drinks a few small glasses of wine weekly no known autoimmune diseases. Triglycerides 98. 10/29/2016: abdominal ultrasound reported mildly dilated main hepatic duct at the level of the pancreatic neck. CBD 0.4 cm. Limited exam due to patient's abdominal pain. 11/01/2016 CT abdomen and pelvis with contrast: Findings consistent with moderate to severe pancreatitis with well-formed thin-walled fluid collection anterior to distal body and tail of pancreas measuring 4.3 x 5.2 cm consistent with early development of pseudocyst. No definitive areas to suggest necrosis at this time. Review of Systems Constitutional: Denies fever, chills, sweats, weight gain, or loss. HEENT: Negative for migraines, blurred vision or loss, earaches, drainage, tinnitus, oral mucosal lesions, dysphagia, or odynophagia. CARDIAC: Hypertension. Tachycardia. Negative for chest pain, arrhythmias, or palpitation. RESPIRATORY: Asthma. Negative for shortness of breath, hemoptysis, cough, or sputum production. GI: See HPI for pertinent findings. : Negative for hematuria, urgency, frequency, polyuria, or dysuria. GYNc: Denies possibility of . Negative vaginal discharge. MUSCULOSKELETAL: Osteoarthritis. Negative for muscle aches, swelling, arthritis , and arthralgias. NEUROLOGIC: Negative for stroke or TIA. ENDOCRINE: Negative for thyroid problems. SKIN: Negative for rash or itching. PSYCHIATRIC: Negative history for depression and anxiety All systems: negative (See HPI) Past Medical History Past Medical History: Asthma, GERD/Reflux, Hypertension, Osteoarthritis (OA) Additional Past Medical History / Comment(s): takes verapamil for tachycardia, to have sleep study soon History of Any Multi-Drug Resistant Organisms: None Reported Past Surgical History: Appendectomy, Cholecystectomy, Hysterectomy, Joint Replacement, Orthopedic Surgery, Tonsillectomy Additional Past Surgical History / Comment(s): both knees replaced, thumb surg, left adrenal gland removed Past Anesthesia/Blood Transfusion Reactions: Postoperative Nausea & Vomiting ( PONV) Additional Past Anesthesia/Blood Transfusion Reaction / Comm: sister had stroke after surg. Past Psychological History: No Psychological Hx Reported Smoking Status: Never smoker Past Alcohol Use History: Occasional Past Drug Use History: None Reported - Past Family History Father Family Medical History: Deep Vein Thrombosis (DVT) Sister(s) Family Medical History: Cancer Medications and Allergies Home Medications Medication Instructions Recorded Confirmed Type Calcium Carbonate [Calcium] 600 mg PO DAILY 03/06/16 10/29/16 History Celecoxib [CeleBREX] 200 mg PO DAILY 03/06/16 10/29/16 History Cetirizine HCl [Zyrtec] 10 mg PO DAILY 03/06/16 10/29/16 History Cyanocobalamin [Vitamin B-12] 500 mcg PO DAILY 03/06/16 10/29/16 History Verapamil HCl [Verapamil ER] 120 mg PO Q48H 03/06/16 10/29/16 History Allergies Allergy/AdvReac Type Severity Reaction Status Date / Time tioconazole Allergy Rash/Hives Verified 10/29/16 11:29 [From Monistat 1 (tioconazole)] codeine AdvReac Nausea & Verified 10/29/16 11:29 Vomiting Physical Exam Vitals: Vital Signs Temp Pulse Resp BP BP Pulse Ox 11/01/16 07:00 96.6 F L 106 H 16 108/69 93 L 10/31/16 23:00 100.6 F H 100 18 114/70 94 L 10/31/16 15:00 96.3 F L 114 H 18 113/63 97 Intake and Output 10/31/16 11/01/16 11/01/16 22:59 06:59 14:59 Other: Voiding Method Toilet # Voids 1 2 General appearance: The patient is alert, oriented, in no acute distress. HET: Head is normocephalic and atraumatic. Pupils are equal and reactive. Oropharynx is clear without lesions. Neck: Supple without lymphadenopathy. Trachea midline. Heart: S1 S2. Regular rate and rhythm. Lungs: No crackles or wheezes are heard. Abdomen: Soft, moderate tenderness midepigastrium left upper quadrant with mild bloatedness bowel sounds present. No peritoneal signs. No palpable organomegaly or masses. Extremities: Normal skin color and turgor. No cyanosis, rash, ulceration, clubbing, or edema. Radial and pedal pulses are 2/4 bilaterally. Neurological: No focal deficits. Strength and sensation are grossly intact. Results CBC & Chem 7: 11/01/16 08:21 11/01/16 08:21 Labs: Abnormal Lab Results - Last 24 Hours (Table) 10/31/16 10/31/16 11/01/16 Range/Units 10:08 10:08 08:21 WBC 14.7 H 14.5 H (3.8-10.6) k/uL Neutrophils # 13.1 H (1.3-7.7) k/uL Lymphocytes # 0.6 L (1.0-4.8) k/uL Potassium (3.5-5.1) mmol/L Chloride 113 H (98-107) mmol/L Carbon Dioxide 21 L (22-30) mmol/L Creatinine 0.50 L (0.52-1.04) mg/dL Calcium 6.2 L* (8.4-10.2) mg/dL AST 42 H (14-36) U/L Total Protein 5.7 L (6.3-8.2) g/dL Albumin 2.8 L (3.5-5.0) g/dL Amylase 331 H* (30-110) U/L Lipase 662 H (23-300) U/L 11/01/16 Range/Units 08:21 WBC (3.8-10.6) k/uL Neutrophils # (1.3-7.7) k/uL Lymphocytes # (1.0-4.8) k/uL Potassium 3.2 L (3.5-5.1) mmol/L Chloride (98-107) mmol/L Carbon Dioxide (22-30) mmol/L Creatinine 0.50 L (0.52-1.04) mg/dL Calcium 6.0 L* (8.4-10.2) mg/dL AST (14-36) U/L Total Protein (6.3-8.2) g/dL Albumin (3.5-5.0) g/dL Amylase (30-110) U/L Lipase (23-300) U/L Microbiology - Last 24 Hours (Table) 10/30/16 18:51 Urine Culture - Preliminary Urine,Clean Catch Gram Neg Bacilli 10/30/16 16:46 Blood Culture Gram Stain - Preliminary Blood Blood Culture - Preliminary Group D Enterococcus 10/30/16 16:33 Blood Culture - Preliminary Blood No Growth after 24 hours 10/30/16 16:46 Blood Culture - Preliminary Blood CT scan - abdomen: report reviewed (Reviewed by Dr. Hu) CT scan - pelvis: report reviewed US - abdomen: report reviewed (Reviewed by Dr. Hu) Assessment and Plan (1) Acute pancreatitis Narrative/Plan: 56-year-old female presents with acute pancreatitis of unclear etiology with a history cholelithiasis and cholecystectomy with unremarkable transaminases and bilirubin with CT imaging suggestive of moderate to severe pancreatitis with suspected early development of pseudocyst without necrosis. Status: Acute Plan: Recommendations: 1. We'll obtain JACINTA and IgG subclass for workup of possible autoimmune pancreatitis. 2. Continue supportive measures and pain medications. Clear liquid diet as tolerated. 3. We'll follow closely with you. ERCP MRCP not indicated at this time. Thank you for this kind referral and the opportunity to participate in the care of your patient. This consultation was discussed with Dr. Hu. The impression and plan of care have been directed as dictated.
--- NOTE | 2016-11-01 10:59 | ECHOF ---
Referral Reason:R/O CHF MEASUREMENTS -------- HEIGHT: 160.0 cm WEIGHT: 71.2 kg BP: 123/74 RVIDd: 2.5 cm (< 3.3) IVSd: 0.6 cm (0.6 - 1.1) LVIDd: 4.3 cm (3.9 - 5.3) LVPWd: 0.8 cm (0.6 - 1.1) IVSs: 1.2 cm LVIDs: 2.3 cm LVPWs: 0.9 cm LA Diam: 3.7 cm (2.7 - 3.8) Ao Diam: 2.7 cm (2.0 - 3.7) AV Cusp: 1.9 cm (1.5 - 2.6) LA Diam: 3.3 cm (2.7 - 3.8) MV EXCURSION: 14.577 mm (> 18.000) MV EF SLOPE: 103 mm/s (70 - 150) EPSS: 0.3 cm MV E Bebeto: 0.63 m/s MV DecT: 250 ms MV A Bebeto: 0.90 m/s MV E/A Ratio: 0.71 RAP: 5.00 mmHg RVSP: 31.05 mmHg FINDINGS -------- Sinus rhythm. This was a technically good study. LV size, wall thickness and systolic function are normal, with an EF greater than 55%. The right ventricle is normal in size. The left atrial size is normal. The right atrial size is normal. There is mild aortic valve sclerosis. There is no evidence of aortic regurgitation. Mild mitral annular calcification present. Mild mitral regurgitation is present. Mild tricuspid regurgitation present. There is no evidence of pulmonary hypertension. The right ventricular systolic pressure, as measured by Doppler, is 31.05mmHg. There is no pulmonic regurgitation present. The aortic root size is normal. There is no pericardial effusion. CONCLUSIONS -------- 1. LV size, wall thickness and systolic function are normal, with an EF greater than 55%. 2. There is mild aortic valve sclerosis. 3. Mild mitral annular calcification present. 4. Mild mitral regurgitation is present. 5. Mild tricuspid regurgitation present. 6. There is no evidence of pulmonary hypertension. 7. The right ventricular systolic pressure, as measured by Doppler, is 31.05mmHg. MILITARY ANALYST: Shivani Owen RDCS
[2016-11-01] MEDS: HYDROcodone/APAP 7.5-325MG 1 EACH TAB PO PRN ×2 (11:10→20:04)
[2016-11-01 11:29] VITALS: BMI 27.8
[2016-11-01] MEDS: POLYETHYLENE GLYCOL 3350 17 GM POWD.PACK PO SCH (11:36)
--- NOTE | 2016-11-01 13:44 | PN ---
DATE OF SERVICE: 10/31/2016 56-year-old admitted for epigastric abdominal pain, found to have gastritis. Patient has low-grade fevers. I do not know the source of sepsis. The patient has possible intraabdominal source of sepsis because of which I am obtaining a CT. Because of bilateral pleural effusions and shortness of breath I am obtaining an echocardiogram and patient will be started on antibiotics in the form of Rocephin and later in the day I found out the patient has a positive blood cultures with gram-positive cocci and urine cultures for positive for gram-negative bacilli and patient has possible enterococcus with possible source being abdominal. Because of that reason Dr. Biswas changed her to Unasyn. REVIEW OF SYSTEMS: The patient is still feeling fatigued. Malaise. CARDIOVASCULAR: No chest pain, no orthopnea, no PND, no palpitations. PULMONARY: Denied any shortness of breath. No cough or hemoptysis. GASTROINTESTINAL: No diarrhea, nausea or vomiting. No abdominal pain. Normoactive bowel sounds. NEUROLOGIC: No headaches, no weakness, no numbness. Medications were reviewed. PHYSICAL EXAMINATION: VITAL SIGNS: Temperature 96.6, pulse of 100, respiratory rate of 18, blood pressure is 114/70, saturating at 94% on 2 L O2 by nasal cannula. GENERAL: Patient appears to have significant malaise. HEENT: Pupils are round and equally reacting to light. EOMI. No scleral icterus. No conjunctival pallor. Normocephalic, atraumatic. No pharyngeal erythema. No thyromegaly. CARDIOVASCULAR: S1 and S2 present. No murmurs, rubs, or gallops. PULMONARY: Chest is clear to auscultation, no wheezing or crackles. ABDOMEN: The patient still has minimal epigastric abdominal tenderness. MUSCULOSKELETAL: No joint swelling or deformity. EXTREMITIES: No cyanosis, clubbing, or pedal edema. NEUROLOGICAL: Gross neurological examination did not reveal any focal deficits. SKIN: No rashes. LABORATORY DATA: Patient does have leukocytosis of 14,700, chloride of 113. Patient is being switched to lactated Ringer's because of that reason, elevated malaise, and lipase of 4107 and amylase of 1018, and patient has pseudohypocalcemia from hyperalbuminemia. ASSESSMENT AND PLAN: 1. Shortness of breath secondary to bilateral pleural effusions, which improved with Lasix. Patient will be given one more dose of Lasix. Bilateral pleural effusion is secondary to systemic response from pancreatitis. I will obtain an echocardiogram to make sure patient does not have any low ejection fraction. 2. Low grade fevers. Source of sepsis is probably intraabdominal because of which I will obtain a CT of the abdomen and patient was started on Unasyn because of the above mentioned reasons. 3. Bacteremia, severe sepsis and systemic and severe sepsis secondary to intraabdominal source that is pancreatitis for which patient is on IV antibiotics as mentioned above, IV fluids as mentioned above. 4. Gastroesophageal reflux disease. 5. Tachycardia secondary to sepsis. 6. Deep venous thrombosis prophylaxis subcu with heparin. MTDD
--- NOTE | 2016-11-01 13:53 | PN ---
Patient is admitted with severe pancreatitis and patient was found to have severe sepsis and bacteremia secondary to enterococcus. Patient is on Unasyn at this point of time. Patient has bilateral pleural effusions that are secondary to systemic inflammatory response. Echocardiogram normal ejection fraction. REVIEW OF SYSTEMS: GENERAL: The patient's malaise and fatigue did improve significantly compared to yesterday. Patient will be started on clear liquid diet. CARDIOVASCULAR: No chest pain, no orthopnea, no PND, no palpitations. PULMONARY: Denied any shortness of breath. No cough or hemoptysis. GASTROINTESTINAL: No diarrhea, nausea or vomiting. No abdominal pain. Normoactive bowel sounds. NEUROLOGIC: No headaches, no weakness, no numbness. PHYSICAL EXAMINATION: GENERAL: The patient is alert and oriented x3, not in any acute distress. Well developed, well nourished. HEENT: Pupils are round and equally reacting to light. EOMI. No scleral icterus. No conjunctival pallor. Normocephalic, atraumatic. No pharyngeal erythema. No thyromegaly. CARDIOVASCULAR: S1 and S2 present. No murmurs, rubs, or gallops. PULMONARY: Chest is clear to auscultation, no wheezing or crackles. MUSCULOSKELETAL: No joint swelling or deformity. EXTREMITIES: No cyanosis, clubbing, or pedal edema. NEUROLOGICAL: Gross neurological examination did not reveal any focal deficits. SKIN: No rashes. ABDOMINAL EXAMINATION: Very minimal epigastric abdominal tenderness and bowel sounds are present. LABORATORY DATA: CBC, CMP, essentially within normal limits. ASSESSMENT AND PLAN: 1. Severe sepsis secondary to bacteremia which is again secondary to enterococcus bacteremia. Repeat blood cultures I believe were ordered. 2. Shortness of breath due to bilateral pleural effusions and systemic inflammatory response, improved with IV Lasix. Pleural effusions improved with IV Lasix and patient's respiratory status did improve. Pelvic, abdominal CT is consistent with severe pancreatitis. 3. An acute severe pancreatitis. 4. Gastroesophageal reflux disease. 5. Asthma, not in acute exacerbation. 6. Multiple ( ) which will be corrected. 7. Pseudohypocalcemia secondary to hypoalbuminemia.
[2016-11-01 16:31] LABS: ANA w/Reflex to Titer NEGATIVE (NEGATIVE)
[2016-11-01] MEDS: TEMAZEPAM 15 MG CAP PO PRN (22:59)
[2016-11-02] MEDS: HYDROmorphone 1 MG/ML 1 ML SYRINGE IV PRN ×7 (03:37→21:11)
--- NOTE | 2016-11-02 05:46 | PN ---
DATE OF SERVICE: 11/01/2016 Reason for followup is enterococcus bacteremia secondary to acute pancreatitis. INTERVAL HISTORY: The patient is afebrile. She has been breathing comfortably, still complaining of pain in the epigastric area. Some nausea, but no vomiting. Denies having any diarrhea. No chest pain, shortness of breath or cough. On examination, blood pressure 124/69 with pulse of 84, temperature 98. She is 91% on room air. General description is a middle-age female lying in bed in no distress. RESPIRATORY SYSTEM: Unlabored breathing. Clear to auscultation anteriorly. HEART: S1, S2, regular rate and rhythm. ABDOMEN: Soft, slightly tender in the epigastric area. EXTREMITIES: No edema of the feet. LABS: Hemoglobin is 12.6, white count 14.5 with a BUN of 9, creatinine 0.50. Blood culture did grow D enterococcus with an Escherichia coli. Patient did have CT of the abdomen and pelvis which shows pancreas slightly prominent in size with more well-formed thin-walled fluid collection anterior distal body and tail measuring 4.3 x 5.2 cm. DIAGNOSTIC IMPRESSION AND PLAN: Patient with Enterococcus bacteremia source is likely abdomen in a patient with acute pancreatitis with a question of possible pseudocyst formation. The patient will be continued on Unasyn. Discussed further with GI services. Continue supportive care. MTDD
[2016-11-02] MEDS: HYDROcodone/APAP 7.5-325MG 1 EACH TAB PO PRN ×2 (05:55→11:06)
[2016-11-02] MEDS: AMPICILLIN-SULBACTAM 3 GM in SODIUM CHLORIDE 0.9% 100 ML IVPB SCH ×3 (05:56→17:24)
[2016-11-02] MEDS: METOPROLOL TARTRATE 12.5 MG TAB PO SCH (07:59)
[2016-11-02] MEDS: DOCUSATE 100 MG CAP PO SCH ×2 (08:01→20:43)
[2016-11-02] MEDS: PANTOPRAZOLE 40 MG TABLET PO SCH (08:01)
[2016-11-02] MEDS: POLYETHYLENE GLYCOL 3350 17 GM POWD.PACK PO SCH (08:01)
[2016-11-02] MEDS: HEPARIN SODIUM,PORCINE 5,000 UNIT/ML 1 ML VIAL SQ SCH ×2 (08:01→16:32)
[2016-11-02] MEDS: SENNOSIDES 8.6 MG TAB PO SCH (08:01)
[2016-11-02] MEDS ORDERED: SODIUM CHLORIDE 0.9% 1,000 ML IV SCH (09:45)
[2016-11-02 10:14] LABS: Anion Gap 14 mmol/L; Blood Urea Nitrogen 8 mg/dL (7-17); Carbon Dioxide 21 mmol/L (22-30); Chloride 104 mmol/L (98-107); Glucose 135 mg/dL (74-99); Non-African American GFR(MDRD) >60 (>60 ml/min/1.73 sqM); Potassium 3.5 mmol/L (3.5-5.1); Sodium 139 mmol/L (137-145)
[2016-11-02 10:27] LABS: Calcium 6.5 mg/dL (8.4-10.2)
--- NOTE | 2016-11-02 10:33 | P.PN ---
Subjective Principal diagnosis: pancreatitis 89year female admitted with moderate to severe acute pancreatitis of unclear etiology. Feels slightly better this morning. Afebrile. Tolerating small amounts of full liquids. Still reports abdominal pain. JACINTA screen negative. Objective - Vital Signs Vital signs: Vital Signs Temp 97.6 F 11/02/16 07:00 Pulse 113 H 11/02/16 07:00 Resp 18 11/02/16 07:00 BP 114/63 11/02/16 07:00 Pulse Ox 93 L 11/02/16 07:00 Intake & Output 11/01/16 11/02/16 11/02/16 18:59 06:59 18:59 Intake Total 100 200 Output Total 900 Balance 100 -900 200 Weight 71.441 kg Intake: Intake, IV Titration 100 200 Amount Ampicillin-Sulbactam 3 gm 100 200 In Sodium Chloride 0.9% 100 ml @ 100 mls/hr IVPB Q6HR [facility] Rx#:[id number] Output: Urine 900 Other: Voiding Method Toilet Toilet # Voids 3 - Exam General appearance: The patient is alert, oriented, in no acute distress. HET: Head is normocephalic and atraumatic. Pupils are equal and reactive. Oropharynx is clear without lesions. Neck: Supple without lymphadenopathy. Trachea midline. Heart: S1 S2. Regular rate and rhythm. Lungs: No crackles or wheezes are heard. Abdomen: Soft, midepigastric tenderness mildly bloated with bowel sounds. No peritoneal signs. No palpable organomegaly or masses. Extremities: Normal skin color and turgor. No cyanosis, rash, ulceration, clubbing, or edema. Radial and pedal pulses are 2/4 bilaterally. Neurological: No focal deficits. Strength and sensation are grossly intact. - Labs CBC & Chem 7: 11/01/16 08:21 11/02/16 08:41 Labs: Abnormal Lab Results - Last 24 Hours (Table) 11/02/16 Range/Units 08:41 Carbon Dioxide 21 L (22-30) mmol/L Creatinine 0.44 L (0.52-1.04) mg/dL Glucose 135 H (74-99) mg/dL Calcium 6.5 L* (8.4-10.2) mg/dL Microbiology - Last 24 Hours (Table) 10/30/16 16:46 Blood Culture Gram Stain - Final Blood Blood Culture - Final Enterococ casseliflavus(grp d) 10/30/16 18:51 Urine Culture - Final Urine,Clean Catch Proteus mirabilis 10/31/16 22:40 Blood Culture - Preliminary Blood No Growth after 24 hours 10/30/16 16:33 Blood Culture - Preliminary Blood No Growth after 48 hours Assessment and Plan (1) Acute pancreatitis Narrative/Plan: 56-year-old female presents with acute pancreatitis of unclear etiology with a history cholelithiasis and cholecystectomy with unremarkable transaminases and bilirubin with CT imaging suggestive of moderate to severe pancreatitis with suspected early development of pseudocyst without necrosis. Status: Acute Plan: Recommendations: 1. Continue supportive measures and pain medications. 2. We'll follow closely with you. Assessment and plan of care discussed with Dr. Hu.
[2016-11-02] MEDS ORDERED: BISACODYL 10 MG SUPP RECTAL STA (10:58)
--- NOTE | 2016-11-02 13:22 | PN ---
The patient is admitted with severe pancreatitis, unknown etiology and patient is bacteremic with enterococcus for which patient is on Unasyn at this point of time. Patient's source of bacteremia is probably pancreas. The patient is still having epigastric abdominal pain and patient is constipated, still complaining of left lower quadrant pain. Left lower quadrant pain is probably constipation for which we will use rectal suppository. Continued epigastric abdominal pain is probably secondary to developing pseudocyst. Patient had bilateral pleural effusions possibly secondary to pancreatitis and systemic inflammatory response secondary to that. REVIEW OF SYSTEMS: CARDIOVASCULAR: No chest pain, no orthopnea, no PND, no palpitations. PULMONARY: Denied any shortness of breath. No cough or hemoptysis. GASTROINTESTINAL: As described in HPI. NEUROLOGIC: No headaches, no weakness, no numbness. Medications were reviewed. Medication changes as mentioned in the interval history. PHYSICAL EXAMINATION: Temperature 97.6, pulse of 113, respiratory rate of 18, blood pressure is 114/63, saturating at 93% on 2 L O2 nasal cannula. GENERAL: The patient is alert and oriented x3, not in any acute distress. Well developed, well nourished. HEENT: Pupils are round and equally reacting to light. EOMI. No scleral icterus. No conjunctival pallor. Normocephalic, atraumatic. No pharyngeal erythema. No thyromegaly. CARDIOVASCULAR: S1 and S2 present. No murmurs, rubs, or gallops. PULMONARY: Chest is clear to auscultation, no wheezing or crackles. ABDOMEN: The patient's abdomen is a little bit distended and tympanic Patient does not have any rebound or rigidity but patient does have minimal epigastric abdominal tenderness. Left lower quadrant no tenderness was appreciated. Bowel sounds were sluggish. MUSCULOSKELETAL: No joint swelling or deformity. EXTREMITIES: No cyanosis, clubbing, or pedal edema. NEUROLOGICAL: Gross neurological examination did not reveal any focal deficits. SKIN: No rashes. LABORATORY DATA: Basic metabolic profile is essentially within normal limits. ASSESSMENT AND PLAN: 1. Severe sepsis and bacteremia secondary to Enterococcus bacteremia. Urine showed Proteus mirabilis, I believe that is ( ) bacteria. 2. Shortness of breath due to bilateral pleural effusions, which improved with IV Lasix. Patient had pleural effusion secondary to inflammation from pancreatitis. 3. Acute severe pancreatitis. 4. Gastroesophageal reflux disease. 5. History of asthma, not in acute exacerbation. I do not know whether patient has persistent asthma or whether patient has chronic intermittent asthma whether it is moderate or severe as I am not her primary care physician. 6. Constipation. 7. Pseudohypocalcemia secondary to hypoalbuminemia.
[2016-11-02 13:31] LABS: IgG Subclass 4 26.9 mg/dL (3.0-175.0)
[2016-11-02 14:22] LABS: CH 29.1; CHCM 33.2; HCT 38.7 % (34.0-46.0); HGB 12.7 gm/dL (11.4-16.0); MCHC 32.7 g/dL (31.0-37.0); MCV 88.6 fL (80.0-100.0); Mean Platelet Volume 6.6; RBC 4.37 m/uL (3.80-5.40); RDW 13.9 % (11.5-15.5); WBC 13.4 k/uL (3.8-10.6)
[2016-11-02] MEDS ORDERED: NA PHOS,M-B/NA PHOS,DI-BA 133 ML ENEMA RECTAL STA (15:24)
[2016-11-02] MEDS ORDERED: POTASSIUM CHLORIDE ER 20 MEQ TAB.ER PO STA (15:25)
[2016-11-02] MEDS: traMADol 50 MG TAB PO SCH (17:55)
[2016-11-02] MEDS: METOPROLOL TARTRATE 25 MG TAB PO SCH (21:04)
[2016-11-03] MEDS: HEPARIN SODIUM,PORCINE 5,000 UNIT/ML 1 ML VIAL SQ SCH ×4 (00:06→23:32)
[2016-11-03] MEDS: HYDROmorphone 1 MG/ML 1 ML SYRINGE IV PRN ×5 (01:24→20:22)
[2016-11-03] MEDS: HYDROcodone/APAP 7.5-325MG 1 EACH TAB PO PRN ×2 (04:01→14:28)
[2016-11-03] MEDS: AMPICILLIN-SULBACTAM 3 GM in SODIUM CHLORIDE 0.9% 100 ML IVPB SCH ×6 (05:38→23:32)
--- NOTE | 2016-11-03 06:49 | PN ---
DATE OF SERVICE: 11/02/2016 Reason for followup is Enterococcus bacteremia. INTERVAL HISTORY: The patient is still running a low grade fever, though the patient's abdominal pain is slightly improved. Some nausea, but no vomiting. Denies any chest pain or shortness of breath or cough. On examination, blood pressure is 123/73 with a pulse of 103, temperature 99.9. She is 91% on room air. General description is a middle-age female lying in bed in no distress. RESPIRATORY SYSTEM: Unlabored breathing. Clear to auscultation anteriorly. HEART: S1, S2, regular rate and rhythm. ABDOMEN: Soft, mild tenderness in the epigastric area. EXTREMITIES: No edema of the feet. LABS: Hemoglobin is 12.7, white count 13.4 with a BUN of 8, creatinine 0.44. Urine with Proteus. Follow up blood culture has been negative. DIAGNOSTIC IMPRESSION AND PLAN: Patient with Enterococcus bacteremia source is likely abdominal as patient admitted to the hospital with acute pancreatitis with the possibility of an abscess versus pseudocyst formation. Scans will be reviewed with the radiologist to see if he can do a CT-guided drainage of the same. In view of the persistent fever, continue the patient on Unasyn, that should cover the urinary tract infection as well. Continue supportive care. MTDD
[2016-11-03] MEDS: PANTOPRAZOLE 40 MG TABLET PO SCH (08:18)
[2016-11-03] MEDS: traMADol 50 MG TAB PO SCH ×5 (08:18→22:04)
[2016-11-03] MEDS: SENNOSIDES 8.6 MG TAB PO SCH (08:19)
[2016-11-03] MEDS: POLYETHYLENE GLYCOL 3350 17 GM POWD.PACK PO SCH (08:20)
[2016-11-03] MEDS: DOCUSATE 100 MG CAP PO SCH ×2 (08:20→20:07)
[2016-11-03] MEDS: METOPROLOL TARTRATE 25 MG TAB PO SCH ×2 (08:21→20:05)
[2016-11-03 08:45] LABS: CH 29.1; CHCM 32.8; HCT 39.6 % (34.0-46.0); HDW 3.35; HGB 12.8 gm/dL (11.4-16.0); MCHC 32.4 g/dL (31.0-37.0); MCV 89.4 fL (80.0-100.0); Mean Platelet Volume 6.8; RBC 4.43 m/uL (3.80-5.40); RDW 14.2 % (11.5-15.5); WBC 14.6 k/uL (3.8-10.6)
[2016-11-03 09:03] LABS: Anion Gap 13 mmol/L; Blood Urea Nitrogen 6 mg/dL (7-17); Carbon Dioxide 23 mmol/L (22-30); Chloride 103 mmol/L (98-107); Glucose 97 mg/dL (74-99); Non-African American GFR(MDRD) >60 (>60 ml/min/1.73 sqM); Potassium 3.4 mmol/L (3.5-5.1); Sodium 139 mmol/L (137-145)
--- NOTE | 2016-11-03 09:30 | P.PN ---
Subjective Principal diagnosis: pancreatitis 56 year female admitted with moderate to severe acute pancreatitis of unclear etiology. Feels slightly better this morning. Afebrile. Tolerating full liquids requesting advancement. Abdominal pain improving. Urine culture Proteus mirabilis. Blood culture enterococ casseliflavus; presently on Unasyn. Objective - Vital Signs Vital signs: Vital Signs Temp 99.0 F 11/03/16 07:00 Pulse 99 11/03/16 07:00 Resp 16 11/03/16 07:00 BP 114/64 11/03/16 07:00 Pulse Ox 90 L 11/03/16 07:00 Intake & Output 11/02/16 11/03/16 11/03/16 18:59 06:59 18:59 Intake Total 200 1540 Balance 200 1540 Intake: Intake, IV Titration 200 1300 Amount Ampicillin-Sulbactam 3 gm 200 200 In Sodium Chloride 0.9% 100 ml @ 100 mls/hr IVPB Q6HR [facility] Rx#:[id number] Sodium Chloride 0.9% 1, 1100 000 ml @ 100 mls/hr IV . Q10H [facility]I Rx#:[id number] Oral 240 Other: Voiding Method Toilet Toilet # Voids 2 # Bowel Movements 0 2 - Exam General appearance: The patient is alert, oriented, in no acute distress. HET: Head is normocephalic and atraumatic. Pupils are equal and reactive. Oropharynx is clear without lesions. Neck: Supple without lymphadenopathy. Trachea midline. Heart: S1 S2. Regular rate and rhythm. Lungs: No crackles or wheezes are heard. Abdomen: Soft, mild midabdominal tenderness mildly bloated with bowel sounds. No peritoneal signs. No palpable organomegaly or masses. Extremities: Normal skin color and turgor. No cyanosis, rash, ulceration, clubbing, or edema. Radial and pedal pulses are 2/4 bilaterally. Neurological: No focal deficits. Strength and sensation are grossly intact. - Labs CBC & Chem 7: 11/03/16 08:01 11/03/16 08:01 Labs: Abnormal Lab Results - Last 24 Hours (Table) 11/02/16 11/02/16 11/03/16 Range/Units 08:41 13:48 08:01 WBC 13.4 H 14.6 H (3.8-10.6) k/uL Potassium (3.5-5.1) mmol/L Carbon Dioxide 21 L (22-30) mmol/L BUN (7-17) mg/dL Creatinine 0.44 L (0.52-1.04) mg/dL Glucose 135 H (74-99) mg/dL Calcium 6.5 L* (8.4-10.2) mg/dL 11/03/16 Range/Units 08:01 WBC (3.8-10.6) k/uL Potassium 3.4 L (3.5-5.1) mmol/L Carbon Dioxide (22-30) mmol/L BUN 6 L (7-17) mg/dL Creatinine 0.48 L (0.52-1.04) mg/dL Glucose (74-99) mg/dL Calcium 6.0 L* (8.4-10.2) mg/dL Microbiology - Last 24 Hours (Table) 10/31/16 22:40 Blood Culture - Preliminary Blood No Growth after 48 hours 10/30/16 16:33 Blood Culture - Preliminary Blood No Growth after 72 hours 10/30/16 16:46 Blood Culture Gram Stain - Final Blood Blood Culture - Final Enterococ casseliflavus(grp d) Assessment and Plan (1) Acute pancreatitis Narrative/Plan: 56-year-old female presents with acute pancreatitis of unclear etiology with a history cholelithiasis and cholecystectomy with unremarkable transaminases and bilirubin with CT imaging suggestive of moderate to severe pancreatitis with suspected early development of pseudocyst without necrosis. Status: Acute (2) Enterococcal bacteremia Status: Acute (3) Urinary tract infection Status: Acute Plan: 1. Advance to low-fat diet. 2. Continue with IV antibiotics per infectious disease recommendations. 3. Discharge per medicine and ID. 4. Return to GI office in 1 week for reevaluation. Assessment and plan of care discussed with Dr. Clemens.
[2016-11-03] MEDS ORDERED: POTASSIUM CHLORIDE ER 20 MEQ TAB.ER PO STA (10:55)
--- NOTE | 2016-11-03 15:06 | PN ---
Patient is admitted with severe pancreatitis unknown etiology, and patient is bacteremic with enterococcus and patient is on Unasyn at this point of time. Patient has significant clinical improvement since yesterday, had epigastric abdominal pain, almost resolved and patient did move her bowels and her left lower quadrant abdominal pain improved as well. Still a concern about developing pseudocyst and patient did have episodes of fever last night. Low grade fever last night because of which I am unable to discharge the patient. Patient continues to have leukocytosis. Patient has mild hypokalemia for which we will supplement potassium. REVIEW OF SYSTEMS: CARDIOVASCULAR: No chest pain, no orthopnea, no PND, no palpitations. PULMONARY: Denied any shortness of breath. No cough or hemoptysis. GASTROINTESTINAL: No diarrhea, nausea or vomiting. No abdominal pain. Normoactive bowel sounds. NEUROLOGIC: No headaches, no weakness, no numbness. Medications were reviewed. PHYSICAL EXAMINATION: Temperature 99.0, pulse of 99, respiratory rate of 16, blood pressure is 114/64, saturating at 98% on room air. GENERAL: The patient is alert and oriented x3, not in any acute distress. Well developed, well nourished. HEENT: Pupils are round and equally reacting to light. EOMI. No scleral icterus. No conjunctival pallor. Normocephalic, atraumatic. No pharyngeal erythema. No thyromegaly. CARDIOVASCULAR: S1 and S2 present. No murmurs, rubs, or gallops. PULMONARY: Chest is clear to auscultation, no wheezing or crackles. ABDOMEN: Soft, nontender, nondistended, normoactive bowel sounds. No palpable organomegaly. MUSCULOSKELETAL: No joint swelling or deformity. EXTREMITIES: No cyanosis, clubbing, or pedal edema. NEUROLOGICAL: Gross neurological examination did not reveal any focal deficits. SKIN: No rashes. LABORATORY DATA: CBC, BMP abnormal for mildly low potassium of 3.4 and continued leukocytosis of 14,600. ASSESSMENT AND PLAN: 1. Severe sepsis and bacteremia secondary to enterococcal bacteremia and can be related to pancreatitis, and can be related to pancreatic pseudocyst as well. 2. Shortness of breath secondary to bilateral pleural effusions which improved at this point of time. 3. Acute severe pancreatitis. Etiology of pancreatitis is unknown. 4. Gastroesophageal reflux disease. 5. History of asthma, not in acute exacerbation. 6. Constipation, which improved. 7. Pseudohyperglycemia secondary to hypoalbuminemia.
--- NOTE | 2016-11-03 18:34 | PN ---
DATE OF SERVICE: 11/03/2016 REASON FOR FOLLOW-UP: 1. Enterococcus bacteremia. 2. Pancreatitis. INTERVAL HISTORY: The patient is afebrile. She still has abdominal pain, but no worsening than yesterday. Pain controlled with the pain medication. No nausea or vomiting. Has been tolerating a clear liquid diet. Denies significant diarrhea. Denies any chest pain. No shortness of breath or cough. On examination, blood pressure is 114/54 with a pulse of 99, temperature 99. She is 98% on room air. General description is a middle-age female lying in bed in no distress. RESPIRATORY SYSTEM: Unlabored breathing. Clear to auscultation anteriorly. HEART: S1, S2 with regular rate and rhythm. ABDOMEN: Soft, mildly tender. EXTREMITIES: No edema of feet. LABS: Hemoglobin is 12.8, white count 14.6 with a BUN of 6, creatinine 0.48. Follow-up blood cultures and stool have been negative. DIAGNOSTIC IMPRESSION AND PLAN: Patient with enterococcus bacteremia. Source is likely abdominal. Patient did have severe pancreatitis. CT was reviewed with the radiologist with no evidence of any drainable abscess though she did have evidence of pseudocyst formation. The patient needs aggressive treatment for underlying pancreatitis for which GI is following the patient. Would benefit for n.p.o. and TPN to give some rest to the GI tract and let the pancreas heal. As far as antibiotic, continue the patient on Unasyn. This was discussed in detail with the attending physician. RASHEL
[2016-11-04] MEDS: AMPICILLIN-SULBACTAM 3 GM in SODIUM CHLORIDE 0.9% 100 ML IVPB SCH ×4 (05:36→23:18)
[2016-11-04] MEDS: HYDROmorphone 1 MG/ML 1 ML SYRINGE IV PRN ×4 (05:47→16:12)
[2016-11-04 07:53] LABS: CHCM 32.7; HCT 39.2 % (34.0-46.0); HDW 3.37; HGB 12.5 gm/dL (11.4-16.0); MCH 28.6 pg (25.0-35.0); MCHC 31.9 g/dL (31.0-37.0); MCV 89.5 fL (80.0-100.0); Mean Platelet Volume 6.6; RBC 4.38 m/uL (3.80-5.40); RDW 14.3 % (11.5-15.5); WBC 14.7 k/uL (3.8-10.6)
[2016-11-04 08:13] LABS: Anion Gap 13 mmol/L; Blood Urea Nitrogen 4 mg/dL (7-17); Carbon Dioxide 19 mmol/L (22-30); Chloride 104 mmol/L (98-107); Glucose 80 mg/dL (74-99); Non-African American GFR(MDRD) >60 (>60 ml/min/1.73 sqM); Sodium 136 mmol/L (137-145)
[2016-11-04] MEDS: POLYETHYLENE GLYCOL 3350 17 GM POWD.PACK PO SCH (08:26)
[2016-11-04] MEDS: HEPARIN SODIUM,PORCINE 5,000 UNIT/ML 1 ML VIAL SQ SCH ×3 (08:26→23:18)
[2016-11-04] MEDS: PANTOPRAZOLE 40 MG TABLET PO SCH (08:27)
[2016-11-04] MEDS: SENNOSIDES 8.6 MG TAB PO SCH (08:27)
[2016-11-04] MEDS: DOCUSATE 100 MG CAP PO SCH ×2 (08:27→20:11)
[2016-11-04] MEDS: traMADol 50 MG TAB PO SCH ×4 (08:27→21:06)
[2016-11-04] MEDS: METOPROLOL TARTRATE 25 MG TAB PO SCH ×2 (08:27→20:11)
[2016-11-04] MEDS: HYDROcodone/APAP 7.5-325MG 1 EACH TAB PO PRN ×2 (13:58→20:10)
[2016-11-04] MEDS: ONDANSETRON 4 MG/2 ML VIAL IVP PRN (13:58)
--- NOTE | 2016-11-04 15:21 | PN ---
DATE OF SERVICE: 11/04/2016 Patient is a 56-year-old presently was admitted to the hospital with acute severe pancreatitis about 5 days ago. She was started on a clear liquid diet about 4 days ago and gradually increased to full liquids and a low fat diet yesterday. She continues to have persistent epigastric discomfort, still not improving despite being on pain medications. She does complain of nausea but no emesis. No fever, chills or night sweats. She did have gram-negative bacteremia for which Dr. Biswas is following the patient and presently on Unasyn. This morning, she still has persistent epigastric pain. No diarrhea. No fever, chills or night sweats. On physical examination, she appears comfortable in no apparent distress. Vital signs are stable. Blood pressure is 120/65. Pulse is 82 and temperature 98.2. HEENT EXAMINATION: Unremarkable. Conjunctivae pink. Sclerae anicteric. Oral cavity, no lesions. NECK: No JVD or lymph node enlargement. Chest was clear to auscultation. HEART: Regular rate and rhythm. ABDOMEN: Soft. She was tender in the epigastric area. EXTREMITIES: No pedal edema. SKIN: No rashes. NEURO: Alert and oriented x3. No focal deficits. Labs done from today, WBC 14.7, hemoglobin 12.5, platelets are 278. Basic metabolic panel is within normal limits IMPRESSION: 1. Acute severe pancreatitis for which she was admitted to the hospital 4 days ago. She had a CT of the abdomen and pelvis on November 01 that showed slightly enlarged pancreas with surrounding ill-defined fluid consistent with acute severe pancreatitis. Clinically, she appears stable but continues to have persistent epigastric pain associated with some nausea but no emesis. She is on a low fat diet today, not able to tolerate well because of abdominal symptoms. RECOMMENDATIONS: 1. We will obtain amylase and lipase today. 2. We will start her back on a clear liquid diet and give her 2 more days to improve before advancing her diet as tolerated. 3. If she still has persistent symptoms in the next 2 days then we will consider starting on TPN. The plan was discussed with ( ) and we will follow her closely during her hospital stay. Thank you for this consultation.
[2016-11-04] MEDS: LACTATED RINGERS 1,000 ML IV SCH (16:13)
--- NOTE | 2016-11-04 17:07 | PN ---
The patient is admitted with severe pancreatitis, etiology is unknown. Patient is bacteremic with Enterococcus and patient is on Unasyn. Patient has a low-grade fevers and patient continues to complain of abdominal pain. I did discuss with Dr. Biswas and Gastroenterology. Because of the severity of pancreatitis and continued abdominal pain, plan is to leave her on clear liquid diet at this point of time and repeat lipase today and tomorrow. REVIEW OF SYSTEMS: CARDIOVASCULAR: No chest pain, no orthopnea, no PND, no palpitations. PULMONARY: Denied any shortness of breath. No cough or hemoptysis. GASTROINTESTINAL: No diarrhea, nausea or vomiting. No abdominal pain. Normoactive bowel sounds. NEUROLOGIC: No headaches, no weakness, no numbness. Medications were reviewed. PHYSICAL EXAMINATION: VITAL SIGNS: Temperature 98.0, pulse of 101, respiratory rate of 16, blood pressure is 137/55, saturating at 95% on room air. GENERAL: The patient is alert and oriented x3, not in any acute distress. Well developed, well nourished. HEENT: Pupils are round and equally reacting to light. EOMI. No scleral icterus. No conjunctival pallor. Normocephalic, atraumatic. No pharyngeal erythema. No thyromegaly. CARDIOVASCULAR: S1 and S2 present. No murmurs, rubs, or gallops. PULMONARY: Chest is clear to auscultation, no wheezing or crackles. ABDOMEN: Continued severe epigastric abdominal tenderness. MUSCULOSKELETAL: No joint swelling or deformity. EXTREMITIES: No cyanosis, clubbing, or pedal edema. NEUROLOGICAL: Gross neurological examination did not reveal any focal deficits. SKIN: No rashes. LABORATORY DATA: CBC and CMP are abnormal for continued elevated WBC count of 14,700. ASSESSMENT AND PLAN: 1. Severe sepsis and bacteremia secondary to enterococcal bacteremia, which is again secondary to pancreatitis. 2. Acute severe pancreatitis. 3. Gastroesophageal reflux disease. 4. Anion gap metabolic acidosis, probably lactic acidosis. Patient will be started on IV fluids with close monitoring. As patient had bilateral pleural effusions in the past, we will are going to order a chest x-ray for tomorrow. 5. Pseudo hypocalcemia. 6. Constipation, which resolved.
[2016-11-04] MEDS: TEMAZEPAM 15 MG CAP PO PRN (21:07)
[2016-11-05] MEDS: LACTATED RINGERS 1,000 ML IV SCH ×2 (04:37→18:51)
[2016-11-05] MEDS: AMPICILLIN-SULBACTAM 3 GM in SODIUM CHLORIDE 0.9% 100 ML IVPB SCH ×4 (06:11→23:35)
[2016-11-05 08:03] LABS: Cholesterol 117 mg/dL (<200); HDL Cholesterol 19 mg/dL (40-60); Triglycerides 212 mg/dL (<150)
--- NOTE | 2016-11-05 08:15 | PN ---
DATE OF SERVICE: 11/04/2016 Reason for follow up is enterococcus bacteremia and pancreatitis. INTERVAL HISTORY: The patient is afebrile. Still complaining of abdominal pain uncontrolled with pain medications. Denies having any chest pain. No nausea, no vomiting, no diarrhea. On examination, blood pressure 121/53 with a pulse of 99. Temperature 97.4. General description is a middle-age female up in the bed in no distress. RESPIRATORY SYSTEM: Unlabored breathing. Clear to auscultation anteriorly. HEART: S1, S2. Regular rate and rhythm. ABDOMEN: Soft, no significant tenderness. LABS: Hemoglobin is 12.5, white count of 14.7, BUN of 4, creatinine 0.45. DIAGNOSTIC IMPRESSION AND PLAN: Patient with Enterococcus faecalis bacteremia secondary to the severe pancreatitis with pseudocyst formation. Patient's white count is still elevated. If she spikes any more fever she may benefit from repeat CT to make sure no development of any abscess that needs to be drained. The patient still will benefit from n.p.o status, TPN and IV antibiotic therapy. Continue supportive care.
[2016-11-05] MEDS: METOPROLOL TARTRATE 25 MG TAB PO SCH ×2 (08:22→20:51)
[2016-11-05] MEDS: HEPARIN SODIUM,PORCINE 5,000 UNIT/ML 1 ML VIAL SQ SCH ×3 (08:22→23:35)
[2016-11-05] MEDS: PANTOPRAZOLE 40 MG TABLET PO SCH (08:22)
[2016-11-05] MEDS: DOCUSATE 100 MG CAP PO SCH ×3 (08:22→20:54)
[2016-11-05] MEDS: traMADol 50 MG TAB PO SCH ×4 (08:23→22:09)
[2016-11-05] MEDS: HYDROmorphone 1 MG/ML 1 ML SYRINGE IV PRN ×3 (08:23→18:34)
[2016-11-05] MEDS: SENNOSIDES 8.6 MG TAB PO SCH (08:42)
[2016-11-05] MEDS: POLYETHYLENE GLYCOL 3350 17 GM POWD.PACK PO SCH (08:42)
--- NOTE | 2016-11-05 11:14 | PN ---
DATE OF SERVICE: 11/05/2016 Patient is a 56-year-old pleasant lady admitted to the hospital a week ago with acute severe pancreatitis. She still continues to complain of epigastric discomfort, but has been improving since yesterday. The patient was on a low-soft diet earlier, which has been changed to a clear liquid diet yesterday because of persistent abdominal pain and today she states that she is feeling a little bit better. She was able to sleep through the night without much need for pain medication. She reports no nausea or vomiting. She still continues to have some diarrhea. No fever, chills, night sweats. On physical examination, she appears comfortable, in no apparent distress. T-max was 100.6, now is 97.4, blood pressure 119/70, pulse rate 92, and respirations 24. HEENT EXAMINATION: Unremarkable. Conjunctivae are pink. Sclerae are nonicteric. Oral cavity, no lesions. NECK: No JVD or lymph node enlargement. Chest was clear to auscultation. HEART: Regular rate and rhythm. Abdomen is soft. There was tenderness in the epigastric area. Bowel sounds are positive. No organomegaly. EXTREMITIES: No pedal edema. SKIN: No rashes. NEURO: Alert and oriented x3. No focal deficits. LABS: WBC of 14.7, hemoglobin 12.5, platelets are normal, lipase is 79. IMPRESSION: Acute severe pancreatitis of unclear etiology. The patient gradually improving. She is back on a clear liquid diet as of yesterday and this morning her pain is somewhat better. Serum lipase is within normal limits. She developed a low-grade fever at 100.6 last night, but this morning is afebrile. RECOMMENDATIONS: 1. Continue with a clear liquid diet. 2. If her symptoms continue to improve, we can advance her diet to a low fat diet tomorrow. 3. If she has persistent epigastric pain and a low-grade fever, it may be beneficial to obtain another CT of the abdomen and pelvis to rule out any necrotizing pancreatitis in the next 1 or 2 days. At this time, will follow her closely during her hospital stay. Thank you for this consultation.
[2016-11-05] MEDS: ONDANSETRON 4 MG/2 ML VIAL IVP PRN ×2 (12:17→18:34)
--- NOTE | 2016-11-05 17:25 | PN ---
The patient is admitted with severe pancreatitis, etiology is unknown. Patient is bacteremic with Enterococcus and patient is on Unasyn. Patient has a low-grade fevers and patient continues to complain of abdominal pain. I did discuss with Dr. Biswas and Gastroenterology. Because of the severity of pancreatitis and continued abdominal pain, plan is to leave her on clear liquid diet at this point of time and repeat lipase today and tomorrow. The patient triglycerides are essentially within normal limits. Patient continues to have fevers. Obtaining lactic acid. REVIEW OF SYSTEMS: CARDIOVASCULAR: No chest pain, no orthopnea, no PND, no palpitations. PULMONARY: Denied any shortness of breath. No cough or hemoptysis. GASTROINTESTINAL: No diarrhea, nausea or vomiting. No abdominal pain. Normoactive bowel sounds. NEUROLOGIC: No headaches, no weakness, no numbness. Medications were reviewed. PHYSICAL EXAMINATION: VITAL SIGNS: The patient has low grade fever 100.6, pulse 103, respiratory rate of 24, blood pressure 135/69, saturating at 92%. GENERAL: The patient is alert and oriented x3, not in any acute distress. Well developed, well nourished. HEENT: Pupils are round and equally reacting to light. EOMI. No scleral icterus. No conjunctival pallor. Normocephalic, atraumatic. No pharyngeal erythema. No thyromegaly. CARDIOVASCULAR: S1 and S2 present. No murmurs, rubs, or gallops. PULMONARY: Chest is clear to auscultation, no wheezing or crackles. ABDOMEN: Continued severe epigastric abdominal tenderness. MUSCULOSKELETAL: No joint swelling or deformity. EXTREMITIES: No cyanosis, clubbing, or pedal edema. NEUROLOGICAL: Gross neurological examination did not reveal any focal deficits. SKIN: No rashes. LABORATORY DATA: As described above. ASSESSMENT AND PLAN: 1. Severe sepsis and bacteremia secondary to enterococcal bacteremia, which is again secondary to pancreatitis. 2. Acute severe pancreatitis. 3. Gastroesophageal reflux disease. 4. Anion gap metabolic acidosis, probably lactic acidosis. Patient will be started on IV fluids with close monitoring. As patient had bilateral pleural effusions in the past, we will are going to order a chest x-ray for tomorrow. 5. Pseudo hypocalcemia. 6. Constipation, which resolved. Additionally patient is having diarrhea because of which constipation medications were discontinued. If the patient continues to have diarrhea even tomorrow morning, we will obtain C. dif testing.
[2016-11-05] MEDS: TEMAZEPAM 15 MG CAP PO PRN (22:10)
[2016-11-06] MEDS: HYDROmorphone 1 MG/ML 1 ML SYRINGE IV PRN ×2 (05:04→09:27)
[2016-11-06] MEDS: AMPICILLIN-SULBACTAM 3 GM in SODIUM CHLORIDE 0.9% 100 ML IVPB SCH ×4 (05:24→23:02)
[2016-11-06] MEDS: traMADol 50 MG TAB PO SCH ×4 (08:15→22:20)
[2016-11-06] MEDS: HEPARIN SODIUM,PORCINE 5,000 UNIT/ML 1 ML VIAL SQ SCH ×3 (08:15→23:10)
[2016-11-06] MEDS: POLYETHYLENE GLYCOL 3350 17 GM POWD.PACK PO SCH (08:15)
[2016-11-06] MEDS: DOCUSATE 100 MG CAP PO SCH ×2 (08:15→21:32)
[2016-11-06] MEDS: PANTOPRAZOLE 40 MG TABLET PO SCH (08:15)
[2016-11-06] MEDS: METOPROLOL TARTRATE 25 MG TAB PO SCH ×2 (08:15→22:20)
[2016-11-06] MEDS: SENNOSIDES 8.6 MG TAB PO SCH (08:16)
[2016-11-06] MEDS: LACTATED RINGERS 1,000 ML IV SCH ×2 (08:17→23:10)
[2016-11-06 09:07] LABS: CHCM 33.1; HCT 40.2 % (34.0-46.0); HDW 3.62; HGB 12.9 gm/dL (11.4-16.0); MCH 28.5 pg (25.0-35.0); MCHC 32.1 g/dL (31.0-37.0); MCV 88.7 fL (80.0-100.0); Mean Platelet Volume 6.8; Poikilocytosis Slight; RBC 4.53 m/uL (3.80-5.40); RDW 14.7 % (11.5-15.5); WBC 17.7 k/uL (3.8-10.6)
[2016-11-06 09:34] LABS: Anion Gap 11 mmol/L; Blood Urea Nitrogen <2 mg/dL (7-17); Calcium 6.6 mg/dL (8.4-10.2); Carbon Dioxide 25 mmol/L (22-30); Chloride 103 mmol/L (98-107); Glucose 102 mg/dL (74-99); Non-African American GFR(MDRD) >60 (>60 ml/min/1.73 sqM); Potassium 3.6 mmol/L (3.5-5.1); Sodium 139 mmol/L (137-145)
[2016-11-06] MEDS: HYDROcodone/APAP 7.5-325MG 1 EACH TAB PO PRN ×2 (14:53→23:12)
[2016-11-06] MEDS: ONDANSETRON 4 MG/2 ML VIAL IVP PRN (16:17)
--- NOTE | 2016-11-06 17:47 | PN ---
DATE OF SERVICE: 11/06/2016 Patient is a 56-year-old pleasant lady admitted to the hospital with acute severe pancreatitis approximately 10 years ago. Over the weekend she started having worsening epigastric pain and her diet was changed to a clear liquid diet and her symptoms gradually improved. This morning she stated that she still has abdominal pain. She is taking Dilaudid every 6 hours, but overall is feeling much better. The nausea and vomiting has resolved. She reports no fever, chills or night sweats. On physical examination, she appears comfortable in no apparent distress. Vital signs are stable. Blood pressure is 130/82 and temperature 96.6, pulse rate 101. HEENT EXAMINATION: Unremarkable. Conjunctivae pink. Sclerae anicteric. Oral cavity, no lesions. NECK: No JVD or lymph node enlargement. CHEST: Clear to auscultation. HEART: Regular rate and rhythm. ABDOMEN: Soft, there was mild tenderness in the epigastric area. Bowel sounds are positive. No organomegaly. EXTREMITIES: No pedal edema. SKIN: No rashes. NEURO: Alert and oriented times three . No focal deficits. LABS: WBC 17.7, hemoglobin 12.9, platelets normal. Lipase yesterday was within normal limits. IMPRESSION: 1. Acute severe pancreatitis of unclear etiology. She is gradually improving. Over the weekend she has more pain and hence her diet was changed to clear liquids and she is tolerating reasonably well with decreased pain. 2. She does have mild leukocytosis today, but remains afebrile. RECOMMENDATIONS: 1. Will advance to full liquid diet today and see how she manages her symptoms. 2. If she continues to have worsening abdominal pain and persistent leukocytosis may consider repeating CT of the abdomen and pelvis to rule out necrotizing pancreatitis though it appears unlikely given her stable overall medical condition. 3. Repeat labs in the morning and we will follow her closely during her hospital stay.
[2016-11-06] MEDS: TEMAZEPAM 15 MG CAP PO PRN (22:20)
--- NOTE | 2016-11-06 22:26 | PN ---
DATE OF SERVICE: 11/06/2016 REASON FOR FOLLOWUP: Enterococcus bacteremia and acute pancreatitis. INTERVAL HISTORY: The patient still has a low-grade fever of 100.6 to 100.4. The patient's abdominal pain is currently controlled with Dilaudid she is getting every 6 hours. She has been on a clear liquid diet. No nausea or vomiting or any diarrhea. On examination, blood pressure is 134/75 with a pulse of 89, temperature of 99.3. She is 97% on room air. General description is a middle-aged female lying in bed in no distress. RESPIRATORY SYSTEM: Unlabored breathing. Clear to auscultation anteriorly. HEART: S1, S2. Regular rate and rhythm. ABDOMEN: Soft. No tenderness. No guarding or rigidity. EXTREMITIES: No edema of feet. LABS: BUN of 2 with a creatinine of 0.53. Hemoglobin is 12.9, white count 17.7. DIAGNOSTIC IMPRESSION AND PLAN: Patient with enterococcus bacteremia. Patient did have severe pancreatitis; still having low-grade fever and elevated white count. Recommend obtaining a repeat CT of abdomen and pelvis. Continue the patient on Unasyn. Overall prognosis remains guarded.
[2016-11-07] MEDS: LACTATED RINGERS 1,000 ML IV SCH ×2 (05:30→21:48)
[2016-11-07] MEDS: AMPICILLIN-SULBACTAM 3 GM in SODIUM CHLORIDE 0.9% 100 ML IVPB SCH ×4 (06:04→23:49)
--- NOTE | 2016-11-07 07:22 | PN ---
DATE OF SERVICE: 11/06/2016 PRESENTING COMPLAINT: Abdominal pain. INTERVAL HISTORY: This is a patient who presented with severe pancreatitis and also bacteremia with enterococcus. Has been on IV antibiotics. Patient had a couple of small stools. Still having abdominal pain, is slowly getting better. She has been up to the bathroom. Lying in bed. Review of systems done for constitutional, cardiovascular, GI, pulmonary; relevant findings as above. Current medications are reviewed that include IV Unasyn. On examination, T-max 100.1, pulse 89, respirations 16, blood pressure 130/75, pulse ox 97% on room air. GENERAL APPEARANCE: Lying in bed, tired-appearing. EYES: Pupils equal, conjunctivae normal. NECK: JVD not raised. Mass not palpable. Respiratory effort normal. LUNGS: Fair air entry. CARDIOVASCULAR: First and second sounds normal. No edema. ABDOMEN: Slightly distended, epigastric tenderness. No guarding or rigidity. Liver and spleen not palpable. PSYCHIATRY: Alert and oriented x3. Mood and affect slightly anxious-appearing. INVESTIGATIONS: White count 7.7, hemoglobin 12.9. Potassium 3.6. Patient last abdominal and pelvis CT had some fluid around the pancreas. ASSESSMENT: 1. Acute sepsis, present on admission, from underlying pancreatitis, and blood cultures positive for enterococcus casseliflavus group D from underlying acute pancreatitis. 2. Acute urinary tract infection for proteus mirabilis. 3. Acute severe pancreatitis present on admission, idiopathic with biochemical improvement. 4. Persistent abdominal pain with low grade white count, could be a still resolving pancreatitis, steatosis pseudocyst. Overall, clinically patient seems to be getting better. PLAN: Discussed with Dr. Clemens. Will advance diet to full liquids. Will order a pancreatic ultrasound to assess for pseudocyst in any case, read and watch policy will probably be appropriate at this point. Clinically patient is doing better as per Dr. Clemens.
[2016-11-07] MEDS: METOPROLOL TARTRATE 25 MG TAB PO SCH ×2 (08:40→21:34)
[2016-11-07] MEDS: traMADol 50 MG TAB PO SCH ×4 (08:41→21:34)
[2016-11-07] MEDS: SENNOSIDES 8.6 MG TAB PO SCH (08:41)
[2016-11-07] MEDS: POLYETHYLENE GLYCOL 3350 17 GM POWD.PACK PO SCH (08:41)
[2016-11-07] MEDS: PANTOPRAZOLE 40 MG TABLET PO SCH (08:41)
[2016-11-07] MEDS: HEPARIN SODIUM,PORCINE 5,000 UNIT/ML 1 ML VIAL SQ SCH ×3 (08:41→23:49)
[2016-11-07] MEDS: DOCUSATE 100 MG CAP PO SCH (08:41)
--- NOTE | 2016-11-07 08:58 | US ---
EXAMINATION TYPE: US abdomen limited DATE OF EXAM: 11/07/2016 8:19 AM COMPARISON: 11/01/2016, to 517 CLINICAL HISTORY: poss pancreatic psuedocyst. EXAM MEASUREMENTS: Liver Length: 17.0 cm Gallbladder Wall: Surgically absent cm CBD: 0.5 cm Right Kidney: 12.7 x 5.9 x 5.8 cm cm FINDINGS: Pancreas: enlarged. Body measures 3.7 cm. Enlarged duct vs fluid collection = 1.5 cm. Fluid collecti on noted at area of pancratic tail. This may represent a possible Pseudocyst measuring 6.5 x 5.3 x 4. 6 cm Liver: Adrenals, small amount of free fluid noted Gallbladder: Surgically absent Evidence for sonographic Arellano's sign: no CBD: wnl Right Kidney: No hydronephrosis or nephrolithiasis IMPRESSION: 1. Again noted is a cystic collection near the tail of the pancreas likely related to pancreatic pseu docyst. Note is again made that the pancreatic body is thickened underlying neoplasm not entirely exc luded.
--- NOTE | 2016-11-07 10:14 | P.PN ---
Subjective Principal diagnosis: pancreatitis 56 year female admitted with moderate to severe acute pancreatitis of unclear etiology. Feels slightly better this morning. Afebrile. Tolerating full liquids requesting advancement. Abdominal pain improving. Urine culture Proteus mirabilis. Blood culture enterococ casseliflavus; presently on Unasyn. Ultrasound abdomen reported pseudocyst underlying neoplasm could not be excluded. Objective - Vital Signs Vital signs: Vital Signs Temp 99.0 F 11/07/16 07:00 Pulse 93 11/07/16 07:00 Resp 18 11/07/16 07:00 BP 115/63 11/07/16 07:00 Pulse Ox 94 L 11/07/16 07:00 Intake & Output 11/06/16 11/07/16 11/07/16 18:59 06:59 18:59 Intake Total 920 Balance 920 Weight 71.441 kg Intake: Oral 920 Other: # Voids 3 2 # Bowel Movements 5 - Exam General appearance: The patient is alert, oriented, in no acute distress. HET: Head is normocephalic and atraumatic. Pupils are equal and reactive. Oropharynx is clear without lesions. Neck: Supple without lymphadenopathy. Trachea midline. Heart: S1 S2. Regular rate and rhythm. Lungs: No crackles or wheezes are heard. Abdomen: Soft, mild midabdominal tenderness mildly bloated with bowel sounds. No peritoneal signs. No palpable organomegaly or masses. Extremities: Normal skin color and turgor. No cyanosis, rash, ulceration, clubbing, or edema. Radial and pedal pulses are 2/4 bilaterally. Neurological: No focal deficits. Strength and sensation are grossly intact. - Labs CBC & Chem 7: 11/06/16 07:52 11/06/16 07:52 Labs: Microbiology - Last 24 Hours (Table) 10/31/16 22:40 Blood Culture - Final Blood No Growth after 144 hours 11/02/16 08:41 Blood Culture - Preliminary Blood No Growth after 96 hours Assessment and Plan (1) Acute pancreatitis Narrative/Plan: 56-year-old female presents with acute pancreatitis of unclear etiology with a history cholelithiasis and cholecystectomy with unremarkable transaminases and bilirubin with CT imaging suggestive of moderate to severe pancreatitis with suspected early development of pseudocyst without necrosis. Status: Acute (2) Enterococcal bacteremia Status: Acute (3) Urinary tract infection Status: Acute Plan: 1. Advance to low-fat diet. Will obtain CA-19-9 marker. 2. Continue with IV antibiotics per infectious disease recommendations. 3. Discharge per medicine and ID. 4. Return to GI office in 1 week for reevaluation. Assessment and plan of care discussed with Dr. Clemens.
[2016-11-07] MEDS ORDERED: CHOLESTYRAMINE (WITH SUGAR) 4 GM PACKET PO SCH (16:00)
--- NOTE | 2016-11-07 19:22 | PN ---
DATE OF SERVICE: 11/07/2016 PRESENTING COMPLAINT: Abdominal pain. INTERVAL HISTORY: The patient presented with severe pancreatitis, also bacteremia with enterococcus, remains on IV antibiotics. Patient having liquid stools. Clostridium difficile came back negative. I did order an ultrasound that has confirmed pancreatic pseudocyst. Review of systems done for cortical cardiovascular, GI, pulmonary; relevant findings as. Current medications include Unasyn. On examination, temperature 99, pulse 93, respirations 18, blood pressure 105/63, pulse ox 94% on room air. GENERAL APPEARANCE: Lying in bed, tired appeared. EYES: Pupils equal. Conjunctivae pale. NECK: JVD not raised. Mass not palpable. RESPIRATORY: Effort normal. LUNGS: Fair air entry. CARDIOVASCULAR: First and second sounds normal. No edema. ABDOMEN: Distended. Epigastric tenderness present. No guarding or rigidity. PSYCHIATRY: Alert and oriented x3. Mood and affect slightly appearing. INVESTIGATIONS: No blood work from today. C. difficile negative. ASSESSMENT: 1. Acute sepsis, present on admission, from underlying pancreatitis and blood cultures positive for Enterococcus, Casseliflavus group B from underlying acute pancreatitis. 2. Acute urinary tract infection from Proteus mirabilis. 3. Acute severe pancreatitis, present at admission, idiopathic with some biochemical improvement. 4. Persistent abdominal pain, low grade white count, could be still resolving pancreatitis. 5. Acute pancreatic pseudocyst. PLAN: Told the patient to keep on full liquid diet, continue with antibiotics. This may take some time to recover. Overall the patient is looking better. Will repeat patient's labs in the morning, that is a CBC and follow normally for pseudocyst. He will try to keep a conservative approach as far as possible. This was discussed with the patient. Will use Metamucil twice a day and see if he can hold off cholestyramine for right now, see if the Metamucil has to cut back on the diarrhea. Also, DC the Colace and Senokot.
[2016-11-07] MEDS: PSYLLIUM HUSK 100% 6 GM PACKET PO SCH (21:31)
[2016-11-07] MEDS: TEMAZEPAM 15 MG CAP PO PRN (21:33)
[2016-11-07] MEDS: HYDROcodone/APAP 7.5-325MG 1 EACH TAB PO PRN (23:48)
[2016-11-08] MEDS: AMPICILLIN-SULBACTAM 3 GM in SODIUM CHLORIDE 0.9% 100 ML IVPB SCH ×4 (05:24→23:30)
--- NOTE | 2016-11-08 07:22 | PN ---
DATE OF SERVICE: 11/07/2016 Reason for followup is Enterococcus bacteremia and pancreatitis. INTERVAL HISTORY: The patient is afebrile today so far. The abdominal pain has improved compared to yesterday and is requiring less pain medication that has been advised by the GI. No nausea. No vomiting or any diarrhea. On examination, blood pressure is 126/67 with a pulse of 96, temperature of 99.7, she is 92% on room air. General description is a middle-age female, lying in bed in no distress. RESPIRATORY SYSTEM: Unlabored breathing. Clear to auscultation anteriorly. HEART: S1, S2, regular rate and rhythm. ABDOMEN: Soft, no tenderness. LABS: No new lab has been obtained today. DIAGNOSTIC IMPRESSION AND PLAN: Patient with Enterococcus faecalis bacteremia. Source is abdomen and patient did have a severe pancreatitis. The patient's white count was still elevated yesterday. Ultrasound was done which did show possible pseudocyst. Will repeat a CBC tomorrow. If any new fever or further jump in the white count, would recommend getting a repeat CT to make sure no evidence of any necrotizing infection or an abscess that may need to drained. Continue the patient on Unasyn. Continue supportive care. MTDD
[2016-11-08] MEDS: HEPARIN SODIUM,PORCINE 5,000 UNIT/ML 1 ML VIAL SQ SCH ×3 (07:46→23:31)
[2016-11-08] MEDS: traMADol 50 MG TAB PO SCH ×4 (07:46→21:00)
[2016-11-08] MEDS: PANTOPRAZOLE 40 MG TABLET PO SCH (07:46)
[2016-11-08] MEDS: METOPROLOL TARTRATE 25 MG TAB PO SCH ×2 (07:46→21:01)
[2016-11-08] MEDS: PSYLLIUM HUSK 100% 6 GM PACKET PO SCH ×2 (07:47→21:02)
[2016-11-08 08:38] LABS: Basophils % (A) 0 %; CH 29.2; CHCM 33.3; Eosinophils # (A) 0.1 k/uL (0-0.7); Eosinophils % (A) 1 %; HCT 37.3 % (34.0-46.0); HDW 3.71; HGB 11.9 gm/dL (11.4-16.0); Hypochromasia Slight; Luc # (Auto) 0.16; Luc % (Auto) 1; Lymphocytes # (A) 0.9 k/uL (1.0-4.8); Lymphocytes % (A) 7 %; MCH 28.2 pg (25.0-35.0); MCHC 31.8 g/dL (31.0-37.0); MCV 88.8 fL (80.0-100.0); Mean Platelet Volume 7.9; Monocytes # (A) 0.6 k/uL (0-1.0); Monocytes % (A) 4 %; Neutrophils # (A) 12.1 k/uL (1.3-7.7); Neutrophils % (A) 87 %; Poikilocytosis Slight; RDW 15.2 % (11.5-15.5); WBC (Perox) 14.06
[2016-11-08 08:55] LABS: Anion Gap 10 mmol/L; Blood Urea Nitrogen <2 mg/dL (7-17); Carbon Dioxide 22 mmol/L (22-30); Chloride 106 mmol/L (98-107); Glucose 121 mg/dL (74-99); Non-African American GFR(MDRD) >60 (>60 ml/min/1.73 sqM); Potassium 3.8 mmol/L (3.5-5.1); Sodium 138 mmol/L (137-145)
[2016-11-08] MEDS ORDERED: LOPERAMIDE 2 MG CAP PO PRN (09:47)
[2016-11-08] MEDS ORDERED: LOPERAMIDE 2 MG CAP PO STA (09:47)
--- NOTE | 2016-11-08 09:49 | P.PN ---
Subjective Principal diagnosis: pancreatitis 56 year female admitted with moderate to severe acute pancreatitis of unclear etiology. Feels better this morning reports diarrhea. C. difficile negative. Afebrile. CA-19-9 within normal limits. Objective - Vital Signs Vital signs: Vital Signs Temp 97.6 F 11/08/16 07:00 Pulse 88 11/08/16 07:00 Resp 20 11/08/16 07:00 BP 119/68 11/08/16 07:00 Pulse Ox 94 L 11/08/16 07:00 Intake & Output 11/07/16 11/08/16 11/08/16 18:59 06:59 18:59 Intake Total 640 350 Balance 640 350 Intake: Oral 640 350 Other: # Voids 4 2 # Bowel Movements 5 4 - Exam General appearance: The patient is alert, oriented, in no acute distress. HET: Head is normocephalic and atraumatic. Pupils are equal and reactive. Oropharynx is clear without lesions. Neck: Supple without lymphadenopathy. Trachea midline. Heart: S1 S2. Regular rate and rhythm. Lungs: No crackles or wheezes are heard. Abdomen: Soft, mild midabdominal tenderness mildly bloated with bowel sounds. No peritoneal signs. No palpable organomegaly or masses. Extremities: Normal skin color and turgor. No cyanosis, rash, ulceration, clubbing, or edema. Radial and pedal pulses are 2/4 bilaterally. Neurological: No focal deficits. Strength and sensation are grossly intact. - Labs CBC & Chem 7: 11/08/16 08:09 11/08/16 08:09 Labs: Abnormal Lab Results - Last 24 Hours (Table) 11/08/16 11/08/16 Range/Units 08:09 08:09 WBC 14.0 H (3.8-10.6) k/uL Neutrophils # 12.1 H (1.3-7.7) k/uL Lymphocytes # 0.9 L (1.0-4.8) k/uL BUN <2 L (7-17) mg/dL Creatinine 0.48 L (0.52-1.04) mg/dL Glucose 121 H (74-99) mg/dL Calcium 7.0 L (8.4-10.2) mg/dL Microbiology - Last 24 Hours (Table) 11/02/16 08:41 Blood Culture - Preliminary Blood No Growth after 120 hours Assessment and Plan (1) Acute pancreatitis Narrative/Plan: 56-year-old female presents with acute pancreatitis of unclear etiology with a history cholelithiasis and cholecystectomy with unremarkable transaminases and bilirubin with CT imaging suggestive of moderate to severe pancreatitis with suspected early development of pseudocyst without necrosis. Status: Acute (2) Enterococcal bacteremia Status: Acute (3) Urinary tract infection Status: Acute (4) Diarrhea Status: Acute Plan: 1. Imodium as needed for diarrhea. 2. Low-fat diet as tolerated. 3. Discharge plan per medicine. Return to GI office in 1 week. Assessment and plan of care discussed with Dr. Clemens.
[2016-11-08] MEDS: LACTATED RINGERS 1,000 ML IV SCH (11:30)
--- NOTE | 2016-11-08 21:19 | PN ---
DATE OF SERVICE: 11/08/2016 PRESENTING COMPLAINT: Abdominal pain. INTERVAL HISTORY: This is a patient presented with severe pancreatitis, idiopathic and also bacteremia with enterococcus, doing better today. Actually advanced to a soft diet. Diarrhea is getting better. Pain is better controlled. Patient has got a pancreatic pseudocyst. Review of systems done for constitutional, cardiovascular, GI, pulmonary; relevant findings as above. Current medications are reviewed and include IV Unasyn. On examination, temperature 97.6, pulse 88, respiration 20, blood pressure 109/68, pulse ox 94% on room air. GENERAL APPEARANCE: Lying in bed. Appears better. EYES: Pupils equal. Conjunctivae normal. NECK: JVD not raised. Mass not palpable. RESPIRATORY: Effort normal. LUNGS: Fair air entry. CARDIOVASCULAR: First and second sounds normal. No edema. ABDOMEN: Distended, decreased tenderness. No guarding or rigidity. PSYCHIATRY: Alert and oriented x3. Mood and affect normal. INVESTIGATIONS: White count 14, potassium 3.8. ASSESSMENT: 1. Acute sepsis, present on admission, from underlying pancreatitis, and blood cultures ( ) Streptococcus ( ) from underlying acute pancreatitis. 2. Acute urinary tract infection from Proteus mirabilis. 3. Acute severe pancreatitis present at admission, idiopathic with clinical improvement. 4. Acute pancreatic pseudocyst. PLAN: Care was discussed with the patient. Doing being better. I spoke to Dr. Biswas. He wishes the patient to be watched for at least 24 hours. Per gastroenterology, the patient is doing well, and have the patient ambulate.
--- NOTE | 2016-11-08 22:00 | PN ---
DATE OF SERVICE: 11/08/2016 Reason for follow-up: Enterococcus bacteremia in a patient with severe pancreatitis. INTERVAL HISTORY: The patient is afebrile. She is breathing comfortably. Abdominal pain has improved, requiring less amount of pain medication. No nausea or vomiting. Did have some diarrhea for C. dif colitis which came back negative. On examination, blood pressure 131/73 with a pulse of 85, temperature 99.2, she is 75% on room air. General description is a middle-age female lying in bed in no distress. RESPIRATORY SYSTEM: Unlabored breathing. Clear to auscultation anteriorly. HEART: S1, S2 regular rate and rhythm. ABDOMEN: soft, no tenderness. EXTREMITIES: No edema of the feet. LABS: Hemoglobin 11.9, white count improved from yesterday. BUN of 2, creatinine 0.48. DIAGNOSTIC IMPRESSION AND PLAN: Patient with enterococcus faecalis, bacteremia, source is pancreatitis. Patient did show slight clinical improvement. Her white count did show downward trend. We will repeat CBC tomorrow if white count has further improved, the patient will be able to finish therapy with oral antibiotic therapy as she received more than a week of IV Unasyn. Overall prognosis remains to be guarded. Continue supportive care. MTDD
[2016-11-09] MEDS: LACTATED RINGERS 1,000 ML IV SCH (01:52)
[2016-11-09] MEDS: AMPICILLIN-SULBACTAM 3 GM in SODIUM CHLORIDE 0.9% 100 ML IVPB SCH ×2 (06:04→11:17)
[2016-11-09 07:54] VITALS: BP 136/87; PULSE 95; RESP 20; TEMP 97.7
[2016-11-09] MEDS: METOPROLOL TARTRATE 25 MG TAB PO SCH (08:16)
[2016-11-09] MEDS: PANTOPRAZOLE 40 MG TABLET PO SCH (08:16)
[2016-11-09] MEDS: PSYLLIUM HUSK 100% 6 GM PACKET PO SCH (08:16)
[2016-11-09] MEDS: traMADol 50 MG TAB PO SCH ×2 (08:17→13:35)
[2016-11-09] MEDS: HEPARIN SODIUM,PORCINE 5,000 UNIT/ML 1 ML VIAL SQ SCH (08:17)
--- NOTE | 2016-11-09 14:04 | PN ---
DATE OF SERVICE: 11/09/2016 REASON FOR FOLLOW-UP: Enterococcus faecalis bacteremia secondary to acute pancreatitis. INTERVAL HISTORY: The patient is afebrile. She is feeling much better compared to yesterday, more than 50% pain has significantly decreased and controlled with all her medications. Denies having nausea, vomiting. Tolerating her diet. Did have some nausea but no worsening. On examination, blood pressure is 136/87, pulse of 95, temperature 97.7. She is 95% on room air. General description is a middle-aged female up in the bed in no distress. RESPIRATORY SYSTEM: Unlabored breathing. Clear to auscultation anteriorly. HEART: S1, S2, regular rate and rhythm. ABDOMEN: Soft, no tenderness. LABS: Hemoglobin is 11.9 with a white count of 14. BUN of 2, creatinine 0.4. Stool for C. difficile negative. Follow-up blood culture has been negative. DIAGNOSTIC IMPRESSION AND PLAN: Patient with Enterococcus faecalis bacteremia. Source is likely abdominal pain, appears to have severe pancreatitis, seems to have responded to the medical therapy. She is afebrile for more than 48 hours now. Unfortunately no CBC was done today. The white count was coming down yesterday. Patient antibiotic will be switched to Augmentin 875 b.i.d. for 2 weeks with close outpatient follow-up. Scripts were written for the patient. Patient advised if any recurrence of worsening abdominal pain, fever or vomiting, she needs to call us or go to the ER right away. RASHEL
--- NOTE | 2016-11-10 19:55 | DS ---
DATE OF ADMISSION: 10/29/2016 DATE OF DISCHARGE: 11/09/2016 FINAL DIAGNOSES: 1. Acute sepsis present on admission from underlying severe pancreatitis. Blood cultures positive with Enterococcus casseliflavus. 2. Acute urinary tract infection from Proteus mirabilis. 3. Acute severe pancreatitis, present on admission, idiopathic. 4. Acute pancreatic pseudocyst. CONSULTATIONS: 1. Dr. Biswas from [facility]. 2. Dr. Wilder Clemens from GI. HOSPITAL COURSE: This is a patient with known history of GERD and tachycardia from verapamil with nausea, vomiting, abdominal pain, found to have severe pancreatitis with lipase being greater than 20,000. The patient has a history of cholecystectomy. Patient's blood cultures came back with the above organisms. Patient took some time to respond. 2-D echocardiogram showed preserved LV function. Later on the patient also had a pseudocyst but kept improving. By the time of discharge the patient was tolerating a soft, bland diet. Pain greatly improved. White count was down to 14,000 and lipase had normalized. Care was discussed in detail with the patient. Questions were answered. DISCHARGE MEDICATIONS: 1. Calcium 600 mg p.o. daily. 2. Vitamin B12 100 mcg daily. 3. Tylenol No. 3, 1 tablet q.6 p.r.n. 4. Augmentin 875, 1 tablet p.o. q.12, 28 tablets. 5. Imodium 2 mg q.i.d. p.r.n. 6. Lopressor 25 mg p.o. b.i.d. 7. Protonix 40 mg p.o. daily. 8. Metamucil 6 grams p.o. b.i.d. DIET: Low fat, soft. Follow up with Dr. Hu on 11/16/16; Dr. Cohen on 11/16/16; and Dr. Biswas on 11/23/16. On exam: EPIGASTRIC: Mild tenderness, soft. Psych: Alert, oriented x3. Discharge planning more than 35 minutes.
== END 2016-11-09 14:28 | disposition home or self-care (01) | DRG 871 ==
LOC: EC 22:39 → 4MS4W 10-29 01:59
PROVIDERS: ADMIT Hospitalist; ATTEND Hospitalist
DX: A41.81 Sepsis due to Enterococcus (principal); K85.90 Acute pancreatitis without necrosis or infection, unspecified; J90 Pleural effusion, not elsewhere classified; E87.2 Acidosis; K86.3 Pseudocyst of pancreas; J98.11 Atelectasis; N39.0 Urinary tract infection, site not specified; E88.09 Other disorders of plasma-protein metabolism, not elsewhere classified; E83.51 Hypocalcemia; B96.4 Proteus (mirabilis) (morganii) as the cause of diseases classified elsewhere; E87.6 Hypokalemia; I10 Essential (primary) hypertension; J45.909 Unspecified asthma, uncomplicated; K21.9 Gastro-esophageal reflux disease without esophagitis; K29.70 Gastritis, unspecified, without bleeding; K59.00 Constipation, unspecified; R65.20 Severe sepsis without septic shock; Z82.49 Family history of ischemic heart disease and other diseases of the circulatory system; Z88.5 Allergy status to narcotic agent; Z88.8 Allergy status to other drugs, medicaments and biological substances; Z79.899 Other long term (current) drug therapy; Z79.1 Long term (current) use of non-steroidal anti-inflammatories (NSAID)
CPT/HCPCS: 36415; 71020; 74000; 74177; 76700; 76705; 80048; 80053; 80061; 80299; 81001; 82150; 82550; 82553; 82787; 83605; 83690; 83735; 84484; 85025; 85027; 85379; 85610; 85730; 86038; 86301; 87040; 87077; 87086; 87186; 93005; 93306; 94760; 96365; 96366; 96375; 96376; 99285

== ENCOUNTER 2017-01-22 08:02 | Day surgery (SDC) | payer BC ==
[2017-01-18 10:26] VITALS: BMI 26.5
[~2017-01-22 08:02] MED LIST: LACTATED RINGERS 1,000 ML IV SCH; LIDOCAINE 1% 20 ML VIAL (10MG/ML) FOR IV START INTRADERMA PRN
[2017-01-22 09:17] VITALS: TEMP 98.4
[2017-01-22] MEDS ORDERED: LIDOCAINE 1% INJ 10MG/ML (20 ML MDV) ONE (09:28)
[2017-01-22] MEDS ORDERED: PROPOFOL 10 MG/ML 20 ML VIAL IV ONE (09:28)
[2017-01-22 10:32] VITALS: RESP 18
--- NOTE | 2017-01-22 10:50 | P.PCN ---
Date of Procedure: 01/22/17 Procedure(s) Performed: Procedure: 1. Esophagogastroduodenoscopy and biopsy. 2. Total colonoscopy. Preoperative diagnosis: Family history of colon cancer, history of mucosal ring with intermittent dysphagia and recent attack of pancreatitis of no clear etiology. Postoperative diagnosis: 1. Mild antral gastritis. 2. Normal colonoscopy. Preparation: HalfLytely prep. Sedation: Was provided by anesthesia. Brief clinical history: The patient is a 56-year-old female with recent attack of pancreatitis of no clear etiology. There is also family history of colon cancer in her father, her last colonoscopy was 8 years ago, and there is history of mucosal ring with intermittent dysphagia, her last dilation was 4 years ago. Procedure: With the patient on her left lateral decubitus position and after informed consent and adequate sedation, I passed the Olympus-GIF 160 video upper endoscope through the cricopharyngeus down the esophagus. GE junction was around 39 cm from the incisors. There was no evidence of esophagitis or complicated reflux disease. I did not notice a mucosal ring or any need for dilation. No hiatal hernia. The endoscope was then passed into the stomach which was insufflated with air and inspected in detail including the retroflex view in the cardia. There was some mottling and erythema in the antrum but no ulcers or erosions. Pyloric channel, duodenal bulb, post bulbar area and descending duodenum appeared within normal limits. There were no duodenal ulcers. Biopsies were obtained from the duodenum, antrum and esophagus then the endoscope was withdrawn and I proceeded to do colonoscopy. Perianal area did not show any fissures or fistulas. There were no masses felt on digital rectal examination. The Olympus CFQ 160L video colonoscope was then inserted in the rectum in the usual fashion and advanced to the cecum. The mucosa appeared healthy. No polyps or tumors were seen or any obvious diverticular disease or other pathology. The patient tolerated the procedure well. Plan: The patient was reassured. Will await pathology results. In light of her family history, I recommended repeat colonoscopy in 5 years. If she continues to have difficulty swallowing, especially if there is nutritional compromise, I recommend further evaluation for esophageal motility disorders. She will follow-up with you as planned.
[2017-01-22 11:07] VITALS: BP 108/68; PULSE 94
== END 2017-01-22 11:05 | disposition home or self-care (01) ==
LOC: ORWHC2ENDO 08:02
DX: Z12.11 Encounter for screening for malignant neoplasm of colon (principal); Z80.0 Family history of malignant neoplasm of digestive organs; K29.50 Unspecified chronic gastritis without bleeding; K21.0 Gastro-esophageal reflux disease with esophagitis; Z87.19 Personal history of other diseases of the digestive system; I10 Essential (primary) hypertension; Z88.5 Allergy status to narcotic agent; Z88.8 Allergy status to other drugs, medicaments and biological substances; Z79.899 Other long term (current) drug therapy
CPT/HCPCS: 88305; 88342; 43239; J2001; J2704; G0105

== ENCOUNTER → 2017-08-21 | Outpatient (CLI) | payer BC ==
[~2017-08-21] MED LIST changes: +COSYNTROPIN 0.25 MG VIAL IM ONE; -LACTATED RINGERS 1,000 ML IV SCH; -LIDOCAINE 1% 20 ML VIAL (10MG/ML) FOR IV START INTRADERMA PRN
[2017-08-21 08:18] VITALS: BP 121/77; PULSE 77; RESP 16; TEMP 98.3
[2017-08-25 22:37] LABS: Total, Free (MN + NMN) 65 pg/mL (< OR = 205)
== END ==
LOC: PROCWHC3 07:55
PROVIDERS: ATTEND Internal Medicine Endocrinology, Diabetes & Metabolism
DX: D35.00 Benign neoplasm of unspecified adrenal gland (principal)
CPT/HCPCS: 36415; 82384; 83835

== ENCOUNTER → 2017-08-24 | Outpatient (CLI) | payer BC ==
[2017-08-24 09:29] LABS: ALT 62 U/L (9-52); AST 47 U/L (14-36); Alkaline Phosphatase 82 U/L (38-126); Anion Gap 9 mmol/L; Blood Urea Nitrogen 16 mg/dL (7-17); Calcium 9.9 mg/dL (8.4-10.2); Carbon Dioxide 24 mmol/L (22-30); Chloride 109 mmol/L (98-107); Glucose 118 mg/dL (74-99); Non-African American GFR(MDRD) >60 (>60 ml/min/1.73 sqM); Potassium 4.4 mmol/L (3.5-5.1); Sodium 142 mmol/L (137-145); Total Bilirubin 0.5 mg/dL (0.2-1.3); Total Protein 7.4 g/dL (6.3-8.2)
[2017-08-27 12:07] LABS: Urine VMA/Creatinine 24 Hour 1.2 gm/24h (0.8-1.8)
[2017-08-28 11:17] LABS: Epinephrine 24 Hr Urine 3 ug/day (0-20); Norepinephrine 24 Hr Urine 44 ug/day (15-80); Total Catecholamines Urine 47 ug/day (15-100); Urine Creatinine,24 Hr 1.2 gm/24h (0.8-1.8)
[2017-08-28 11:36] LABS: Metanephrines 24 Hour,Urine 49 ug/day (52-341); Normetanephrine 24 Hour,Urine 383 ug/day (88-444); Total Metanephrines 24 Hour,Ur 432 ug/day (140-785); Urine Creatinine, 24 Hr 1.2 gm/24h (0.8-1.8)
== END | disposition home or self-care (01) ==
LOC: LABWHC1 08:35
PROVIDERS: ATTEND Internal Medicine Endocrinology, Diabetes & Metabolism
DX: D35.00 Benign neoplasm of unspecified adrenal gland (principal)
CPT/HCPCS: 36415; 80053; 82088; 82384; 83835; 84244; 84585

== ENCOUNTER → 2020-03-30 | Outpatient (CLI) | payer BC ==
--- NOTE | 2020-03-30 19:58 | CONS ---
CONSULTATION REASON FOR CONSULTATION: Sleep apnea. Lizzette is 59, coming in for sleep apnea evaluation. Her has obstructive sleep apnea. He utilizes a CPAP machine and he has realized that the patient has been snoring excessively and she has been quitting breathing at nighttime. The patient has been feeling more tired and sleepy, especially since she has gained around 20 pounds over this past one year. She goes to bed around 10 p.m., wakes up at 6 a.m. in the morning, and the patient feels somewhat tired and sleepy. Her Atlanta score is 9. She does not fall asleep while driving. She does not fall asleep while performing day-to- day activities. Overnight she sleeps on her side. She prefers to sleep on her side. She is unable to sleep on her back, as the patient gets short of breath. She drinks 1- 2 cups of coffee in the morning. She wakes up multiple times in the middle of the night and her sleep is quite fragmented. She utilizes the bathroom probably once. She is able to degenerate and go back to sleep without any major difficulties. No sleep paralysis, hallucinations or cataplexy. She states that she had a home sleep study several years back, and it came back negative. She is coming in for re-evaluation. PAST MEDICAL HISTORY: Bronchial asthma. PAST SURGICAL HISTORY: Past surgical history includes bilateral knee replacement, hysterectomy, tonsillectomy, adenoidectomy and cholecystectomy. DRUG ALLERGIES: REQUIP. OUTPATIENT MEDICATION LIST: Outpatient medication list includes Celebrex, metoprolol, Singulair, Protonix and Zyrtec. She also takes vitamin D and calcium. SOCIAL HISTORY: The patient is a nonsmoker. No use of alcoholism. No history of IV drugs. FAMILY HISTORY: Her mother had diabetes mellitus and heart problems. Her father had colon cancer, DVT, peripheral vascular disease and heart disease. REVIEW OF SYSTEMS: Fourteen-point review of systems was done. Positive for a 20-pound weight gain. No seizures. No headaches. No altered mentation. No insomnia. No sleepwalking or sleeptalking. No anxiety or panic attacks. PHYSICAL EXAMINATION: VITAL SIGNS: BP is 118/71, pulse 80, respirations 16, temperature 98.2, saturation 98% on room air. Height is 5 feet 3 inches, weight is 166. BMI 29.5. Neck size is 13 inches. GENERAL APPEARANCE: Calm, comfortable. HEAD: Atraumatic, normocephalic. NECK: Supple. No JVD. No goiter or neck mass. Mallampati class IV along with significant crowding of posterior pharynx. LUNGS: Clear to auscultation. HEART: Heart sounds are regular rate and rhythm. Normal S1, S2. No S3, S4. No murmurs. ABDOMEN: Soft, nontender. No organomegaly. EXTREMITIES: No edema. No cyanosis or clubbing. NEUROLOGIC: Awake and alert. There is no focal neurological deficit. IMPRESSION: 1. Hypersomnia and Atlanta score of 9; consider obstructive sleep apnea. 2. Loud snoring. 3. Sleep fragmentation with frequent nocturnal arousals. 4. Mallampati class IV with significant crowding of posterior pharynx. 5. Recent 20-pound weight gain with a body mass index of 29.5. 6. Bronchial asthma. 7. Degenerative arthritis. 8. Hypertension. PLAN: 1. Encourage weight loss. 2. Implement good sleep hygiene measures. 3. Sleep on the side, keeping the head of the bed elevated at 20 degrees at all times. 4. Proceed with a home sleep study to screen this patient again for sleep apnea and treat accordingly. MMODL / IJN: [id number] /
== END | disposition home or self-care (01) ==
LOC: SLEEP 15:05
PROVIDERS: ATTEND Internal Medicine Critical Care Medicine
DX: G47.10 Hypersomnia, unspecified (principal); R06.83 Snoring; G47.8 Other sleep disorders; R63.5 Abnormal weight gain; J45.909 Unspecified asthma, uncomplicated; M19.90 Unspecified osteoarthritis, unspecified site; I10 Essential (primary) hypertension; Z79.1 Long term (current) use of non-steroidal anti-inflammatories (NSAID); Z79.899 Other long term (current) drug therapy; Z88.8 Allergy status to other drugs, medicaments and biological substances
CPT/HCPCS: 99211

== ENCOUNTER → 2021-07-18 | Outpatient (CLI) | payer BC ==
--- NOTE | 2021-07-19 13:59 | MM ---
Reason for exam: screening (asymptomatic). Last mammogram was performed 1 year and 3 months ago. History: Patient is postmenopausal. Family history of breast cancer in maternal grandmother. Took hormonal contraceptives for 20 years. Physical Findings: A clinical breast exam by your physician is recommended on an annual basis and results should be correlated with mammographic findings. MG 3D Screening Mammo W/Cad Bilateral CC and MLO view(s) were taken. Prior study comparison: April 29, 2020, mammogram, performed at [facility]. April 28, 2019, mammogram, performed at [facility]. There are scattered fibroglandular densities. No significant changes when compared with prior studies. ASSESSMENT: Negative, BI-RAD 1 RECOMMENDATION: Routine screening mammogram of both breasts in 1 year.
== END | disposition home or self-care (01) ==
LOC: RADMAMWWP 10:54
PROVIDERS: ATTEND Family Medicine
DX: Z12.31 Encounter for screening mammogram for malignant neoplasm of breast (principal); Z78.0 Asymptomatic menopausal state; Z80.3 Family history of malignant neoplasm of breast
CPT/HCPCS: 77063; 77067

== ENCOUNTER → 2022-07-19 | Outpatient (CLI) | payer BC ==
--- NOTE | 2022-07-20 18:46 | MM ---
Reason for Exam: Screening (asymptomatic). Last screening mammogram was performed 12 month(s) ago. Patient History: Menarche at age 10. First Full-Term at age 20. Left ovary removed at age 43. Right ovary removed at age 43. Hysterectomy at age 43. Postmenopausal. Patient has history of breast feeding. Patient used Hormonal Contraceptives for 20 years. Maternal grandmother had breast cancer. Risk Values: Marcia 5 year model risk: 1.4%. NCI Lifetime model risk: 5.8%. Prior Study Comparison: 10/29/2018 Screening Mammogram, [facility]. 04/28/2019 Screening Mammogram, [facility]. 04/29/2020 Screening Mammogram, [facility]. 07/18/2021 Bilateral Screening Mammogram, [facility]. Tissue Density: The breast tissue is heterogeneously dense. This may lower the sensitivity of mammography. Findings: Analyzed By CAD. A couple low axillary tail lymph nodes now seen on the right CC view. There is no suspicious group of microcalcifications or new suspicious mass in either breast. Overall Assessment: Benign, BI-RAD 2 Management: Screening Mammogram of both breasts in 1 year. 1. Patient should continue monthly self breast exams. 2. A clinical breast exam by your physician is recommended on an annual basis. 3. This exam should not preclude additional follow-up of suspicious palpable abnormalities. Electronically signed and approved by: Apryl Alexander M.D. Radiologist
== END | disposition home or self-care (01) ==
LOC: RADMAMWWP 09:02
PROVIDERS: ATTEND Family Medicine
DX: Z12.31 Encounter for screening mammogram for malignant neoplasm of breast (principal); Z78.0 Asymptomatic menopausal state; Z80.3 Family history of malignant neoplasm of breast
CPT/HCPCS: 77067

== ENCOUNTER 2023-02-12 07:06 | Emergency (ER) | payer BC ==
[2023-02-12 07:24] VITALS: RESP 18; TEMP 97.6
[2023-02-12] MEDS ORDERED: SODIUM CHLORIDE 0.9% 1,000 ML IV STA (07:36)
[2023-02-12] MEDS ORDERED: KETOROLAC 15 MG/ML 1 ML VIAL IVP STA (07:36)
[2023-02-12] MEDS ORDERED: HYDROmorphone 0.5 MG/0.5 ML SYRINGE IVP STA (07:43)
--- NOTE | 2023-02-12 07:43 | ED ---
Abdominal Pain HPI - General Chief Complaint: Abdominal Pain Stated Complaint: Abd Pain Time Seen by Provider: 02/12/23 07:20 Source: patient, EMS, RN notes reviewed Mode of arrival: ambulatory Limitations: no limitations - History of Present Illness Initial Comments: This is a 62-year-old female who presents to the emergency department for abdominal pain. States that this is in the left upper quadrant and right upper quadrant, however it is more so on the sides. Pain is described as sharp and stabbing and it is much worse with movement, especially if she tries to stand up. This has been present for the last 3-4 days, however it was much worse this morning. She did have to discontinue her Celebrex a few days ago for upcoming foot surgery, which she states has also exacerbated this pain. The surgery was intended to repair a tendon in the right foot due to recurrent episodes of tendinitis. Surgery was scheduled for today, however she had to cancel it due to the abdominal pain. She has a history of pancreatitis, and states that the pain is as intense as it was then, but is otherwise unsure if it is in the same location. Denies any nausea, vomiting, diarrhea, or constipation. Also denies any changes in urinary habits. Denies any fevers, chills, sore throat, cough, dyspnea, chest pain, palpitations, nausea, vomiting, diarrhea, back pain, or headaches. MD Complaint: abdominal pain Onset/Timin -: days(s) Location: LUQ, RUQ - Related Data Home Medications Medication Instructions Recorded Confirmed Calcium Carbonate [Calcium] 600 mg PO DAILY 03/06/16 08/21/17 Cyanocobalamin [Vitamin B-12] 500 mcg PO TUSA 03/06/16 08/21/17 Celecoxib [CeleBREX] 200 mg PO DAILY 01/18/17 08/21/17 Cetirizine HCl [Zyrtec] 10 mg PO DAILY 01/18/17 08/21/17 Metoprolol Succinate [Toprol XL] 25 mg PO DAILY 01/18/17 08/21/17 Previous Rx's Medication Instructions Recorded Baclofen 10 mg PO TID PRN #15 tab 02/12/23 Allergies Allergy/AdvReac Type Severity Reaction Status Date / Time Milk Containing Products Allergy Nausea & Verified 08/21/17 08:12 Vomiting ropinirole [From Requip] Allergy HEART Verified 08/21/17 08:12 PALPITATIONS tioconazole Allergy Rash/Hives Verified 08/21/17 08:12 [From Monistat 1 (tioconazole)] codeine AdvReac Nausea & Verified 08/21/17 08:12 Vomiting Review of Systems ROS Statement: Those systems with pertinent positive or pertinent negative responses have been documented in the HPI. ROS Other: All systems not noted in ROS Statement are negative. Past Medical History Past Medical History: Asthma, GERD/Reflux, Hypertension, Osteoarthritis (OA) Additional Past Medical History / Comment(s): DIFFICULTY SWALLOWING, HX OF SCHATZKI RING, HX OF RESTLESS LEG, HX SEASONAL ASTHMA, NO MEDS AT THIS TIME, SLEEP STUDY BORDERLINE, HX PANCREATITIS History of Any Multi-Drug Resistant Organisms: None Reported Past Surgical History: Appendectomy, Cholecystectomy, Hysterectomy, Joint Replacement, Orthopedic Surgery, Tonsillectomy Additional Past Surgical History / Comment(s): HX OF ESOPHAGEAL DILATIONS, VAGINAL SX, RECTOCELE REPAIR, both knees replaced, thumb surg, left adrenal gland removed, RT FROZEN SHOULDER MANIPULATION Past Anesthesia/Blood Transfusion Reactions: Postoperative Nausea & Vomiting (PONV) Additional Past Anesthesia/Blood Transfusion Reaction / Comment(s): sister had stroke after surg. MOM HAD ISSUES WAKING UP POST OP Past Psychological History: No Psychological Hx Reported Smoking Status: Never smoker Past Alcohol Use History: Occasional Past Drug Use History: None Reported - Past Family History Father Family Medical History: Cancer, Deep Vein Thrombosis (DVT) Additional Family Medical History / Comment(s): COLON Sister(s) Family Medical History: Cancer Additional Family Medical History / Comment(s): X2 TYROID General Exam Limitations: no limitations General appearance: alert, in distress Head exam: Present: atraumatic, normocephalic, normal inspection Respiratory exam: Present: normal lung sounds bilaterally. Absent: respiratory distress, wheezes, rales, rhonchi, stridor Cardiovascular Exam: Present: regular rate, normal rhythm, normal heart sounds. Absent: systolic murmur, diastolic murmur, rubs, gallop, clicks GI/Abdominal exam: Present: soft, tenderness (RUQ and LUQ), normal bowel sounds. Absent: distended Back exam: Absent: tenderness, CVA tenderness (R), CVA tenderness (L) Neurological exam: Present: alert, oriented X3, CN II-XII intact Psychiatric exam: Present: normal affect, normal mood Skin exam: Present: warm, dry, intact, normal color. Absent: rash Course Vital Signs 02/12/23 02/12/23 02/12/23 07:19 09:01 11:22 Temperature 97.6 F Pulse Rate 120 H 93 101 H Respiratory 18 18 18 Rate Blood Pressure 122/92 133/88 114/76 O2 Sat by Pulse 96 96 99 Oximetry Medical Decision Making - Medical Decision Making This is a 62-year-old female who presents to the emergency department for abdominal pain. Was pt. sent in by a medical professional or institution? @ -No Did you speak to anyone other than the patient for history? @ -No Did you review nursing and triage notes? @ -Yes, and I agree, it is accurate with regards to the patient's symptoms. Were old charts reviewed? @ -No Differential Diagnosis? @ -Differential Abdominal Pain Women: Appendicitis, Cholecystitis, diverticulosis, ischemic bowel, pancreatitis, hepatitis, UTI, gastroenteritis, AAA, incarcerated hernia, bowel obstruction, constipation, inflammatory bowel, hepatitis, peptic ulcer disease, splenic infarction, perforated viscus, vulvitis, ovarian torsion, PID, kidney stone, placenta abruption, this is not meant to be an all-inclusive list EKG interpreted by me (3pts min.)? @ -EKG interpreted by me demonstrating the following: Sinus tachycardia. Ventricular rate 107 bpm, WA interval 143 ms, QRS duration 80 ms, QTC 363 ms. X-rays interpreted by me (1pt min.)? @ -Not obtained CT interpreted by me (1pt min.)? @ -Computed tomography scan of the abdomen and pelvis obtained. My interpretation identifies no evidence of bowel wall thickening or free air. U/S interpreted by me (1pt. min.)? @ -Not obtained What testing was considered but not performed? (CT, X-rays, U/S, labs)? Why? @ -None What meds were considered but not given? Why? @ -None Did you discuss the management of the patient with other professionals? @ -No Did you reconcile home meds? @ -No Was smoking cessation discussed for >3mins.? @ -No Was critical care preformed (if so, how long)? @ -No Were there social determinants of health that impacted care today? How? (Homelessness, low income, unemployed, alcoholism, drug addiction, transportation, low edu. Level, literacy, decrease access to med. care, retirement, rehab)? @ -No Was there de-escalation of care discussed even if they declined? (Discuss DNR or withdrawal of care, Hospice)? @ -No What co-morbidities impacted this encounter? (DM, HTN, Smoking, COPD, CAD, Cancer, CVA, Hep., AIDS, mental health diagnosis, sleep apnea, morbid obesity)? @ -GERD, hx of pancreatitis Was patient admitted / discharged? @ -Discharged. Lab work obtained revealing mild leukocytosis and was otherwise nonactionable. Urinalysis is negative for signs of infection. Computed tomography scan also reveals no acute findings to account for the patient's symptoms. Her pain was controlled in the emergency department. Advised that this may be musculoskeletal in nature. Prescription for baclofen provided with dosing instructions reviewed. Advised that this may be sedating and she should avoid driving or operating machinery when taking this. Advised she resume her Celebrex in the meantime since the surgery is being postponed. She can also take this with Tylenol. Also recommended she avoid any excess movements or activity for the meantime, as this may further exacerbate the issue. Undiagnosed new problem with uncertain prognosis? @ -None Drug Therapy requiring intensive monitoring for toxicity (Heparin, Nitro, Insulin, Cardizem)? @ -None Were any procedures done? @ -None Diagnosis/symptom? @ -Upper abdominal pain Acute, or Chronic, or Acute on Chronic? @ -Acute Uncomplicated (without systemic symptoms) or Complicated (systemic symptoms)? @ -Uncomplicated Side effects of treatment? @ -None Exacerbation, Progression, or Severe Exacerbation] @ -Not applicable Poses a threat to life or bodily function? @ -No Return precautions reviewed in depth, the patient is instructed to return to the emergency department with any new, worsening, or concerning symptoms. Patient verbalized understanding. This case was discussed in detail with the attending ED physician, Dr. Gates. Presentation, findings, and treatment plan discussed in detail as well. - Lab Data Result diagrams: 02/12/23 07:46 02/12/23 08:41 Lab Results 02/12/23 02/12/23 02/12/23 Range/Units 07:46 07:46 07:46 WBC 10.8 H (3.8-10.6) k/uL RBC 5.72 H (3.80-5.40) m/uL Hgb 14.4 (11.4-16.0) gm/dL Hct 44.8 (34.0-46.0) % MCV 78.4 L (80.0-100.0) fL MCH 25.2 (25.0-35.0) pg MCHC 32.2 (31.0-37.0) g/dL RDW 15.2 (11.5-15.5) % Plt Count 260 (150-450) k/uL MPV 7.4 Neutrophils % 76 % Lymphocytes % 14 % Monocytes % 8 % Eosinophils % 1 % Basophils % 0 % Neutrophils # 8.2 H (1.3-7.7) k/uL Lymphocytes # 1.5 (1.0-4.8) k/uL Monocytes # 0.8 (0-1.0) k/uL Eosinophils # 0.1 (0-0.7) k/uL Basophils # 0.0 (0-0.2) k/uL Sodium (137-145) mmol/L Potassium (3.5-5.1) mmol/L Chloride (98-107) mmol/L Carbon Dioxide (22-30) mmol/L Anion Gap mmol/L BUN (7-17) mg/dL Creatinine (0.52-1.04) mg/dL Est GFR (CKD-EPI)AfAm (>60 ml/min/1.73 sqM) Est GFR (CKD-EPI)NonAf (>60 ml/min/1.73 sqM) Glucose (74-99) mg/dL Plasma Lactic Acid Nithin 1.2 (0.7-2.0) mmol/L Calcium (8.4-10.2) mg/dL Total Bilirubin (0.2-1.3) mg/dL AST (14-36) U/L ALT (4-34) U/L Alkaline Phosphatase (38-126) U/L Total Protein (6.3-8.2) g/dL Albumin (3.5-5.0) g/dL Amylase (30-110) U/L Lipase (23-300) U/L Urine Color Yellow Urine Appearance Cloudy H (Clear) Urine pH 5.5 (5.0-8.0) Ur Specific [place] 1.019 (1.001-1.035) Urine Protein Trace H (Negative) Urine Glucose (UA) Negative (Negative) Urine Ketones 1+ H (Negative) Urine Blood Moderate H (Negative) Urine Nitrite Negative (Negative) Urine Bilirubin Negative (Negative) Urine Urobilinogen <2.0 (<2.0) mg/dL Ur Leukocyte Esterase Negative (Negative) Urine RBC 1 (0-5) /hpf Urine WBC 1 (0-5) /hpf Ur Squamous Epith Cells 1 (0-4) /hpf Urine Bacteria Rare H (None) /hpf Urine Mucus Many H (None) /hpf 02/12/23 Range/Units 08:41 WBC (3.8-10.6) k/uL RBC (3.80-5.40) m/uL Hgb (11.4-16.0) gm/dL Hct (34.0-46.0) % MCV (80.0-100.0) fL MCH (25.0-35.0) pg MCHC (31.0-37.0) g/dL RDW (11.5-15.5) % Plt Count (150-450) k/uL MPV Neutrophils % % Lymphocytes % % Monocytes % % Eosinophils % % Basophils % % Neutrophils # (1.3-7.7) k/uL Lymphocytes # (1.0-4.8) k/uL Monocytes # (0-1.0) k/uL Eosinophils # (0-0.7) k/uL Basophils # (0-0.2) k/uL Sodium 138 (137-145) mmol/L Potassium 3.9 (3.5-5.1) mmol/L Chloride 106 (98-107) mmol/L Carbon Dioxide 24 (22-30) mmol/L Anion Gap 8 mmol/L BUN 10 (7-17) mg/dL Creatinine 0.58 (0.52-1.04) mg/dL Est GFR (CKD-EPI)AfAm >90 (>60 ml/min/1.73 sqM) Est GFR (CKD-EPI)NonAf >90 (>60 ml/min/1.73 sqM) Glucose 98 (74-99) mg/dL Plasma Lactic Acid Nithin (0.7-2.0) mmol/L Calcium 8.0 L (8.4-10.2) mg/dL Total Bilirubin 0.8 (0.2-1.3) mg/dL AST 26 (14-36) U/L ALT 25 (4-34) U/L Alkaline Phosphatase 77 (38-126) U/L Total Protein 6.0 L (6.3-8.2) g/dL Albumin 3.2 L (3.5-5.0) g/dL Amylase 43 (30-110) U/L Lipase 82 (23-300) U/L Urine Color Urine Appearance (Clear) Urine pH (5.0-8.0) Ur Specific [place] (1.001-1.035) Urine Protein (Negative) Urine Glucose (UA) (Negative) Urine Ketones (Negative) Urine Blood (Negative) Urine Nitrite (Negative) Urine Bilirubin (Negative) Urine Urobilinogen (<2.0) mg/dL Ur Leukocyte Esterase (Negative) Urine RBC (0-5) /hpf Urine WBC (0-5) /hpf Ur Squamous Epith Cells (0-4) /hpf Urine Bacteria (None) /hpf Urine Mucus (None) /hpf - Radiology Data Radiology results: report reviewed, image reviewed Disposition Clinical Impression: Upper abdominal pain Disposition: HOME SELF-CARE Instructions (If sedation given, give patient instructions): Abdominal Pain (ED) Additional Instructions: Return to the emergency department with any new, worsening, or concerning symptoms. You can resume taking the Celebrex since your surgery has been postponed. Take this with Tylenol. You can take the baclofen up to 3 times daily. The baclofen may make you sleepy and you should avoid driving or operating machinery when taking this. Follow up with your primary care provider in 1-2 days. Prescriptions: Baclofen 10 mg PO TID PRN #15 tab PRN Reason: Pain Is patient prescribed a controlled substance at d/c from ED?: No Referrals: Raji Cohen MD [Primary Care Provider] - 1-2 days
[2023-02-12] MEDS ORDERED: LORazepam 2 MG/ML INJ IV STA (07:55)
[2023-02-12 08:05] LABS: Basophils % (A) 0 %; Eosinophils # (A) 0.1 k/uL (0-0.7); Eosinophils % (A) 1 %; HCT 44.8 % (34.0-46.0); HGB 14.4 gm/dL (11.4-16.0); Lymphocytes # (A) 1.5 k/uL (1.0-4.8); Lymphocytes % (A) 14 %; MCH 25.2 pg (25.0-35.0); MCHC 32.2 g/dL (31.0-37.0); MCV 78.4 fL (80.0-100.0); Mean Platelet Volume 7.4; Monocytes # (A) 0.8 k/uL (0-1.0); Monocytes % (A) 8 %; Neutrophils # (A) 8.2 k/uL (1.3-7.7); Neutrophils % (A) 76 %; Platelet Count 260 k/uL (150-450); RBC 5.72 m/uL (3.80-5.40); RDW 15.2 % (11.5-15.5); WBC 10.8 k/uL (3.8-10.6)
[2023-02-12 08:33] LABS: Appearance,Urine Cloudy (Clear); Bacteria,Urine Rare /hpf; Bilirubin,Urine Negative (Negative); Blood,Urine Moderate (Negative); Color,Urine Yellow; Glucose,Urine (UA) Negative (Negative); Ketones,Urine 1+ (Negative); Leukocyte Esterase,Urine Negative (Negative); Mucus,Urine Many /hpf; Nitrite,Urine Negative (Negative); PH, Urine 5.5 (5.0-8.0); Protein,Urine Trace (Negative); RBC,Urine 1 /hpf (0-5); Specific Gravity,Urine 1.019 (1.001-1.035); Squamous Epithelial Cell,Urine 1 /hpf (0-4); Urobilinogen,Urine <2.0 mg/dL (<2.0); WBC,Urine 1 /hpf (0-5)
[2023-02-12 09:02] LABS: ALT 25 U/L (4-34); AST 26 U/L (14-36); African American GFR (CKD) >90 (>60 ml/min/1.73 sqM); Albumin 3.2 g/dL (3.5-5.0); Alkaline Phosphatase 77 U/L (38-126); Amylase 43 U/L (30-110); Anion Gap 8 mmol/L; Blood Urea Nitrogen 10 mg/dL (7-17); Carbon Dioxide 24 mmol/L (22-30); Chloride 106 mmol/L (98-107); Glucose 98 mg/dL (74-99); Lipase 82 U/L (23-300); Non-African American GFR(CKD) >90 (>60 ml/min/1.73 sqM); Potassium 3.9 mmol/L (3.5-5.1); Sodium 138 mmol/L (137-145); Total Bilirubin 0.8 mg/dL (0.2-1.3)
--- NOTE | 2023-02-12 09:40 | CT ---
EXAMINATION TYPE: CT abdomen pelvis w con DATE OF EXAM: 02/12/2023 COMPARISON: November 01, 2016 HISTORY: upper and b/l side pain. CT DLP: 888.8 mGycm CONTRAST: CT scan of the abdomen and pelvis is performed without Oral Contrast and with IV Contrast, patient in jected with 90 mL of Isovue 300. FINDINGS: LUNG BASES-: No visible nodule. No infiltrate. LIVER/GB: The gallbladder is surgically absent. No space occupying hepatic lesion. Biliary tree is of normal caliber. PANCREAS: No inflammation. No distinct mass. SPLEEN: No splenic enlargement. 7 mm hepatic hemangioma noted. ADRENALS: No nodule. No thickening. KIDNEYS/BLADDER: No hydronephrosis. No nephrolithiasis. 5 mm renal cortical cyst left kidney. Urina ry bladder grossly unremarkable. BOWEL: Normal appendix. Normal bowel caliber. No inflammation. GENITAL ORGANS: Hysterectomy changes noted. Vaginal cuff is unremarkable. No evidence for ovarian or adnexal mass. LYMPH NODES: No greater than 1cm abdominal or pelvic lymph nodes are appreciated. AORTA: No significant abnormality. OSSEOUS STRUCTURES: No significant abnormality is seen. OTHER: No significant additional abnormality is seen. IMPRESSION: 1. No acute intra-abdominal or intrapelvic process identified to account for the patient's symptoms.
[2023-02-12] MEDS ORDERED: traMADol 50 MG TAB PO STA (10:35)
[2023-02-12] MEDS ORDERED: methocarbamoL 750 MG TAB PO ONE (10:35)
[2023-02-12 11:23] VITALS: BP 114/76; PULSE 101
== END 2023-02-12 12:00 | disposition home or self-care (01) ==
LOC: EC 07:06
DX: R10.11 Right upper quadrant pain (principal); I10 Essential (primary) hypertension; J45.909 Unspecified asthma, uncomplicated; M19.90 Unspecified osteoarthritis, unspecified site; Z79.899 Other long term (current) drug therapy; Z88.8 Allergy status to other drugs, medicaments and biological substances; Z91.011 Allergy to milk products
CPT/HCPCS: 36415; 93005; 80053; 82150; 83605; 83690; 85025; 81001; 74177; 99284; 96374; 96375 ×2; 96361; J2060; J1885; J1170; Q9967

== ENCOUNTER → 2023-07-20 | Outpatient (CLI) | payer BC, MEDICARE ==
--- NOTE | 2023-07-20 11:05 | MM ---
Reason for Exam: Screening (asymptomatic). Last screening mammogram was performed 12 month(s) ago. Patient History: Menarche at age 10. First Full-Term at age 20. Left ovary removed at age 43. Right ovary removed at age 43. Hysterectomy at age 43. Postmenopausal. Patient has history of breast feeding. Patient used Hormonal Contraceptives for 20 years. Maternal grandmother had breast cancer. Risk Values: Marcia 5 year model risk: 1.5%. NCI Lifetime model risk: 5.6%. Prior Study Comparison: 04/29/2020 Screening Mammogram, [facility]. 07/18/2021 Bilateral Screening Mammogram, [facility]. 07/19/2022 Bilateral MG screening mammo w CAD, [facility]. Tissue Density: The breast tissue is heterogeneously dense. This may lower the sensitivity of mammography. Findings: Analyzed By CAD. There is no suspicious group of microcalcifications or new suspicious mass in either breast. Couple of low axillary tail lymph nodes again seen on the right. Overall Assessment: Benign, BI-RAD 2 Management: Screening Mammogram of both breasts in 1 year. A clinical breast exam by your physician is recommended on an annual basis and results should be correlated with mammographic findings. Note on Marcia scores and lifetime risk: 1. A Marcia score greater than 3% is considered moderate risk. If this is the case, consider specialist referral to assess eligibility for a risk reducing agent. If overall lifetime risk for the development of breast cancer is 20% or higher, the patient may qualify for future screening with alternating mammogram and breast MRI. Electronically signed and approved by: Jair Trejo D.O.
== END | disposition home or self-care (01) ==
LOC: RADMAMWWP 08:46
PROVIDERS: ATTEND Family Medicine
DX: Z12.31 Encounter for screening mammogram for malignant neoplasm of breast (principal); Z78.0 Asymptomatic menopausal state; Z80.3 Family history of malignant neoplasm of breast
CPT/HCPCS: 77063; 77067

== ENCOUNTER → 2024-04-24 | Outpatient (CLI) | payer BC, MEDICARE ==
[2024-04-24 16:12] LABS: Basophils # (A) 0.03 X 10*3/uL (0.00-0.10); Basophils % (A) 0.4 %; Eosinophils # (A) 0.13 X 10*3/uL (0.04-0.35); Eosinophils % (A) 1.8 %; HCT 49.6 % (37.2-46.3); HGB 15.8 g/dL (12.0-15.0); Lymphocytes # (A) 1.37 X 10*3/uL (0.90-5.00); Lymphocytes % (A) 19.1 %; MCH 27.1 pg (27.0-32.0); MCHC 31.9 g/dL (32.0-37.0); MCV 85.2 FL (80.0-97.0); Mean Platelet Volume 9.2 FL (9.5-12.2); Monocytes # (A) 0.72 X 10*3/uL (0.20-1.00); NRBC Per 100 WBC 0 X 10*3/uL (0.00-0.01); Neutrophils # (A) 4.91 X 10*3/uL (1.80-7.70); Neutrophils % (A) 68.4 %; Platelet Count 312 X 10*3/uL (140-440); RBC 5.82 X 10*6/uL (4.10-5.20); RDW 15.6 % (11.5-14.5); WBC 7.18 X 10*3/uL (4.50-10.00)
[2024-04-24 16:32] LABS: ALT 64 U/L (8-44); AST 54 U/L (13-35); Albumin 4.3 g/dL (3.8-4.9); Albumin/Globulin Ratio 1.54 Ratio (1.60-3.17); Alkaline Phosphatase 96 U/L (41-126); Blood Urea Nitrogen 14.4 mg/dL (9.0-27.0); Carbon Dioxide 25.4 mmol/L (21.6-31.8); Chloride 104 mmol/L (96-109); Globulin 2.8 g/dL (1.6-3.3); Glucose 96 mg/dL (70-110); Potassium 4.8 mmol/L (3.5-5.5); Sodium 140 mmol/L (135-145); Total Bilirubin 0.5 mg/dL (0.3-1.2); Total Protein 7.1 g/dL (6.2-8.2)
== END | disposition home or self-care (01) ==
LOC: LABWHC1 09:34
PROVIDERS: ATTEND Internal Medicine Gastroenterology
DX: K59.09 Other constipation (principal)
CPT/HCPCS: 36415; 80053; 85025

== ENCOUNTER 2024-06-10 05:47 | Day surgery (SDC) | payer BC, MEDICARE ==
[2024-06-09 09:16] VITALS: BMI 28.1
[2024-06-10 06:20] VITALS: RESP 16; TEMP 96.6
[2024-06-10] MEDS: LACTATED RINGERS 1,000 ML IV SCH (06:27)
[2024-06-10] MEDS: IV FLUID CONTINUATION 1,000 ML IV ONE (06:28)
[2024-06-10] MEDS ORDERED: LIDOCAINE 2% (PF) 20 MG/ML 5 ML VIAL ONE (07:00)
[2024-06-10] MEDS ORDERED: PROPOFOL 10 MG/ML 20 ML VIAL IV ONE (07:00)
--- NOTE | 2024-06-10 07:33 | P.PCN ---
Date of Procedure: 06/10/24 Procedure(s) Performed: Brief history: Patient is a pleasant scheduled for an elective upper endoscopy as well as colonoscopy as a part of evaluation of intermittent dysphagia to solids and screening for colon cancer. Her mother was diagnosed with colon cancer at age 80. Procedure performed: Esophagogastroduodenoscopy with biopsy and dilation Colonoscopy Preoperative diagnosis: GERD/intermittent dysphagia to solids Screening for colon cancer and family history of colon cancer Anesthesia: MAC Procedure: After informed consent was obtained from the patient was brought into the endoscopy unit and IV sedation was administered by anesthesia under continuous monitoring. Initially upper endoscopy was done. The Olympus GF 160 video endoscope was inserted inserted into the mouth and esophagus intubated without any difficulty and was gradually advanced into the stomach and duodenum and carefully examined. The bulb and second part of the duodenum appeared normal. The scope was then withdrawn into the stomach adequately insufflated with air and upon careful examination the antrum and body, had diffuse gastritis and biopsies were done from this area. Mucosa of the cardia and fundus appeared normal. The scope was then withdrawn into the esophagus. Small hiatal hernia noted. The GE junction was located at 40 cm to the incisors. It appeared regular with no erythema erosions or ulcerations. There was a distal esophageal Schatzki's ring identified and this was dilated using 20 mm TTS balloon for 30 seconds. Rest of the esophagus appeared normal. Biopsies were done from the esophagus to rule out eosinophilic esophagitis. Patient tolerated the procedure well. At this time the patient continued to remain sedation. Initial digital rectal examination was normal. Olympus CF 160 video colonoscope was then inserted into the rectum and gradually advanced to the cecum without any difficulty. Careful examination was performed as the scope was gradually being withdrawn. The prep was excellent. The cecum, ascending colon, transverse colon, descending colon, sigmoid colon and rectum appeared normal. Retroflexion was performed in the rectum and no lesions were noted. Patient tolerated the procedure well. Impression: 1. Upper endoscopy revealed distal esophageal Schatzki's ring status post balloon dilation using 20 mm TTS balloon, small hiatal hernia and diffuse antral gastritis 2. Colonoscopy was within normal limits with no evidence of colitis or colorectal neoplasia Recommendations: Findings of this examination were discussed with the patient as well as her family. She was advised to follow-up with the biopsy results. recommended repeat colonoscopy in 5 years because of a family history of colon cancer
[2024-06-10 07:55] VITALS: BP 130/80; PULSE 83
== END 2024-06-10 08:30 | disposition home or self-care (01) ==
LOC: ORWHC2ENDO 05:47
PROVIDERS: ATTEND Internal Medicine Gastroenterology
DX: Z12.11 Encounter for screening for malignant neoplasm of colon (principal); K29.50 Unspecified chronic gastritis without bleeding; K21.00 Gastro-esophageal reflux disease with esophagitis, without bleeding; K22.2 Esophageal obstruction; I10 Essential (primary) hypertension; J45.909 Unspecified asthma, uncomplicated; M19.90 Unspecified osteoarthritis, unspecified site; G25.81 Restless legs syndrome; Z79.51 Long term (current) use of inhaled steroids; Z80.0 Family history of malignant neoplasm of digestive organs; Z79.899 Other long term (current) drug therapy; Z91.041 Radiographic dye allergy status; Z88.5 Allergy status to narcotic agent; Z88.8 Allergy status to other drugs, medicaments and biological substances
CPT/HCPCS: 88305; 45378; 43239; 43249; J2704; J2001; C1726

== ENCOUNTER → 2024-07-21 | Outpatient (CLI) | payer BC, MEDICARE ==
--- NOTE | 2024-07-22 08:39 | MM ---
Reason for Exam: Screening (asymptomatic). Last screening mammogram was performed 12 month(s) ago. Patient History: Menarche at age 10. First Full-Term at age 20. Left ovary removed at age 43. Right ovary removed at age 43. Hysterectomy at age 43. Postmenopausal. Patient has history of breast feeding. Patient used Hormonal Contraceptives for 20 years. Maternal grandmother had breast cancer. Risk Values: Marcia 5 year model risk: 1.5%. NCI Lifetime model risk: 5.4%. Prior Study Comparison: 07/18/2021 Bilateral Screening Mammogram, [facility]. 07/19/2022 Bilateral MG screening mammo w CAD, [facility]. 07/20/2023 Bilateral MG 3D screening mammo w/cad, [facility]. Tissue Density: There are scattered areas of fibroglandular density. Findings: Analyzed By CAD. Right breast: There is no suspicious group of microcalcifications or new suspicious mass. Left breast: There is no suspicious group of microcalcifications or new suspicious mass. Overall Assessment: Negative, BI-RAD 1 Management: Screening Mammogram of both breasts in [address] [facility] will attempt to contact patient to return for supplemental views and ultrasound if indicated. Patient should continue monthly self-breast exams. A clinical breast exam by your physician is recommended on an annual basis. This exam should not preclude additional follow-up of suspicious palpable abnormalities. Note on Marcia scores and lifetime risk: 1. A Marcia score greater than 3% is considered moderate risk. If this is the case, consider specialist referral to assess eligibility for a risk reducing agent. 2. If overall lifetime risk for the development of breast cancer is 20% or higher, the patient may qualify for future screening with alternating mammogram and breast MRI. [facility], , 07/22/2024 8:36 AM. Electronically signed and approved by: Angel Morrow DO
== END | disposition home or self-care (01) ==
LOC: RADMAMWWP 09:25
PROVIDERS: ATTEND Family Medicine
DX: Z12.31 Encounter for screening mammogram for malignant neoplasm of breast
CPT/HCPCS: 77063; 77067

== ENCOUNTER 2025-01-28 08:45 | Day surgery (SDC) | payer BC, MEDICARE ==
[2025-01-26 14:58] VITALS: BMI 27.8
[~2025-01-28 08:45] MED LIST changes: -COSYNTROPIN 0.25 MG VIAL IM ONE; +LACTATED RINGERS 1,000 ML IV SCH
[2025-01-28] MEDS: IV FLUID CONTINUATION 1,000 ML IV ONE (09:16)
[2025-01-28 09:20] VITALS: RESP 16; TEMP 97.3
[2025-01-28] MEDS ORDERED: PROPOFOL 10 MG/ML 20 ML VIAL IV ONE (10:03)
[2025-01-28] MEDS ORDERED: LIDOCAINE 1% INJ 10MG/ML (20 ML MDV) ONE (10:03)
--- NOTE | 2025-01-28 10:15 | P.PCN ---
Date of Procedure: 01/28/25 Procedure(s) Performed: BRIEF HISTORY: Patient is a 64-year-old, pleasant, white female scheduled for an endoscopy as well evaluation of worsening dysphagia to solids for the last 6 months duration.. PROCEDURE PERFORMED: Esophagogastroduodenoscopy with biopsy and daily. PREOPERATIVE DIAGNOSIS: GERD and intermittent dysphagia to solids. IV sedation per anesthesia. PROCEDURE: After informed consent was obtained, the patient was brought into the endoscopy unit. IV sedation was administered by Anesthesia under continuous monitoring. Initially the Olympus GIF-140 video endoscope was inserted into the mouth. Esophagus intubated without any difficulty. It was gradually advanced into the stomach and duodenum and carefully examined. The bulb and the second part of the duodenum appeared normal. The scope at this time was withdrawn to the stomach, adequately insufflated with air, and upon careful examination, mucosa of the antrum, body, cardia and the fundus appeared normal. The scope was then withdrawn into the esophagus. The GE junction was located at 39 cm from the incisors. Small hiatal hernia noted there was a distal esophageal Schatzki's ring identified that was dilated using 20 mm TTS balloon for 60 seconds. The esophagus appeared normal. There were no erosions or ulcerations seen, biopsies were done from the mid and distal esophagus rule out eosinophilic esophagitis and the patient tolerated the procedure well. IMPRESSION: 1. Small hiatal hernia. 2. Distal esophageal Schatzki's ring status post balloon dilation using 20 mm TTS balloon as described above. RECOMMENDATIONS: The findings of this examination were discussed with the patient as well as her family. She was advised to follow-up with the biopsy results. Follow-up in the office in 2 weeks..
[2025-01-28 10:54] VITALS: BP 133/88; PULSE 91
== END 2025-01-28 11:43 | disposition home or self-care (01) ==
LOC: ORWHC2ENDO 08:45
PROVIDERS: ATTEND Internal Medicine Gastroenterology
DX: K22.2 Esophageal obstruction (principal); K44.9 Diaphragmatic hernia without obstruction or gangrene; K21.9 Gastro-esophageal reflux disease without esophagitis
CPT/HCPCS: 43239; 43249; J2003; J2704; C1726; 88305